=== PATIENT | male | born 1945 | race Caucasian/White ===

== ENCOUNTER 2023-01-15 12:29 | Emergency (ER) | payer MEDICARE, SELFPAY ==
[2023-01-15 12:40] VITALS: BP 137/64; PULSE 56; RESP 20; TEMP 37.4; O2SAT 98
--- NOTE | 2023-01-15 12:44 | ED.URI ---
HPI - URI/Sore Throat General Chief Complaint: Upper Respiratory Infection Stated Complaint: Cough/Congestion Time Seen by Provider: 01/15/23 12:44 Source: patient and RN notes reviewed History of Present Illness HPI Narrative: Patient is a 77-year-old male who presents to urgent care with complaints of chest congestion, cough and runny nose. Patient states it started Sunday after he mowed, we did and worked in the yard all day. Patient states he has been sitting outside in the cold air. States he took Tylenol yesterday for a 99 temperature. Denies any exposure to illness. Denies any shortness of breath or chest discomfort. No other acute complaints. No acute distress noted. Patient aware of the plan of care. Some parts of this dictation were generated by voice recognition software and may contain typographical and/or grammatical inaccuracies. Related Data Home Medications Medication Instructions Recorded Confirmed amlodipine 10 mg tablet mg 01/15/23 apixaban 5 mg tablet (Eliquis) mg 01/15/23 atorvastatin 10 mg tablet mg 01/15/23 losartan 50 mg tablet mg 01/15/23 Allergies Allergy/AdvReac Type Severity Reaction Status Date / Time ABA Inhibitors Allergy Mild Verified 05/01/10 02:53 Review of Systems Review of Systems: CONSTITUTIONAL: Denies fever, chills, or sweats. EYES: Denies visual changes, redness, or discharge. ENT: Reports rhinorrhea, congestion CARDIOVASCULAR: Denies chest pain, palpitations, or edema. RESPIRATORY: Reports a mild cough without dyspnea GASTROINTESTINAL: Denies abdominal pain, nausea, vomiting, or diarrhea. GENITOURINARY: Denies dysuria or hematuria. SKIN: Denies rash or itching. MUSCULOSKELETAL: Denies back pain, joint pain, or myalgia. NEUROLOGIC: Denies headache, numbness, or weakness. All other systems reviewed are negative, except as documented in HPI. PMFSH Comments At the time of my signature, I reviewed and agree with the nursing past medical, surgical, social, and family history. There is no relevant family history pertinent to the patient complaint. Exam Narrative: GENERAL: This is a well-nourished, well-developed patient, in no apparent distress. HEAD: normocephalic, atraumatic. EYES: PERRL. Sclera clear/white. Vision is grossly intact. EARS: External ears normal, auditory canals clear and without drainage, TMs normal without perforation. Hearing grossly intact. NOSE: External nose normal with no obvious nasal discharge, nares without redness, clear rhinorrhea. THROAT: Mucous membranes moist, posterior pharynx clear. Moderate postnasal drainage NECK: Neck supple RESPIRATORY: Clear to auscultation. Breath sounds equal bilaterally. No wheezes, rales, or rhonchi. SKIN: warm, intact with no suspicious lesions or rash, good texture and turgor. NEURO: awake, alert, and oriented to person, place and time. There were no obvious focal neurologic abnormalities. EXTREMITIES: No clubbing, cyanosis, or edema. Course Course Level of Care: Express Care Visit Vital Signs Vital signs: Vital Signs Temperature 99.4 F 01/15/23 12:40 Pulse Rate 56 L 01/15/23 12:40 Respiratory Rate 20 01/15/23 12:40 Blood Pressure 137/64 01/15/23 12:40 Pulse Oximetry 98 01/15/23 12:40 Oxygen Delivery Room Air 01/15/23 12:40 Temperature 99.4 F 01/15/23 12:40 Pulse Rate 56 L 01/15/23 12:40 Respiratory Rate 20 01/15/23 12:40 Blood Pressure 137/64 01/15/23 12:40 Pulse Oximetry 98 01/15/23 12:40 Oxygen Delivery Room Air 01/15/23 12:40 Reviewed MDM - URI/Sore Throat MDM Narrative Medical decision making narrative: Advised patient take a daily antihistamine such as Claritin or Zyrtec. Avoid medications with pseudoephedrine. Symptoms are consistent with allergic rhinitis/common cold. Use Flonase nasal spray for runny nose. Follow-up with your PCP within 2-5 days or for worsening symptoms or failure to improve. Differential Diagnosis Differential diagnosis:
== END 2023-01-15 13:05 | disposition home or self-care (01) ==
PROVIDERS: Emergency Provider Nurse Practitioner Family; PCP Internal Medicine
DX: J30.9 Allergic rhinitis, unspecified (principal); I10 Essential (primary) hypertension
CPT/HCPCS: 99203; G0463

== ENCOUNTER 2025-08-09 10:09 | Emergency (ER) | payer MEDICARE, SELFPAY ==
--- OUTSIDE RECORDS SUMMARY | 2025-01-07 02:47 | XMS_ITS | Continuity of Care Document ---
Author Organization [facility] Address [address] [place] [address] Phone Care Team Providers Care Sign Fabricator Name Role Phone Thee PT,MPT,ATC, Tyrell Unavailable Unavai lable Procedures Procedure Date Therapeutic Activities Therapeutic Activities Neuromuscular Re-Ed Therapeutic Activities Neuromuscular Re-Ed Doc neg elder mal no plan PT Evaluation Moderate Complexity Therapeutic Activities Neuromuscular Re-Ed Advance Directives Directive Yes / No Effective Date File Name No Information Encounters Encounter Description Practice Location Reason(s) For Visit Diagnoses Date Provider Providers Copied on Encounter [facility], [id number], tel:[phone] [place] No Information 5 Thee Santillan. , [place], [place]. [facility], [id number], tel:[phone] [place] No Information 4 [place]. . Referring Provider: Irvin Flores, [address] [place], [address]. tel:[phone] [facility] [address] [address], [place], [place], [id number], tel:[phone] [place] No Information 4 [place]. . Referring Provider: Irvin Flores, [address], [place], [address]. tel:[phone], [id number], tel:[phone] [place] No Information Dec-0 4 Dominic Izquierdo. . Referring Provider: Irvin Flores, [address], [place], [address]. tel:[phone], [place], [place], [id number], tel:[phone] [place] No Information Dec-0 2- 4 [facility] [place] . Referring Provider: Irvin Flores, [address] [address], [place], [address]. tel:[phone] Family History Family Member Type Diagnosis Age At Onset No Information Payers Payer name Insurance type Covered republican ID Pablito valentin(s) Medicare [place] MB [id number] [employer] Medicare Supplement CI [id number] Social History Type Description Quantity Date Captured Comments Sex Male Smoking Status No Information Chief Complaint And Reason For Visit No Information Reason For Referral Reason For Referral No Information History Of Present Illness Encounter Date Complaint History Of Prese nt Illness No Information Functional Status Date Functional Assessmen t No Information Instructions Date Instruction Additional Infor mation No Information Assessments Type Assessment Date No Information Patient Care Teams Name Effective Dates (start - stop) Status Members No Information
--- OUTSIDE RECORDS SUMMARY | 2025-01-07 02:47 | XMS_ITS | Continuity of Care Document ---
Author Organization [facility] Address [address] [place] [address] Phone Care Team Providers Care Hospital Educator Name Role Phone Thee PT,MPT,ATC, Tyrell Unavailable Unavai lable Procedures Procedure Date Therapeutic Activities Therapeutic Activities Neuromuscular Re-Ed Therapeutic Activities Neuromuscular Re-Ed Doc neg elder mal no plan PT Evaluation Moderate Complexity Therapeutic Activities Neuromuscular Re-Ed Advance Directives Directive Yes / No Effective Date File Name No Information Encounters Encounter Description Practice Location Reason(s) For Visit Diagnoses Date Provider Providers Copied on Encounter [facility], [id number], tel:[phone] [place] No Information 5 Thee Santillan. , [place], [place]. [facility], [id number], tel:[phone] [place] No Information 4 [place]. . Referring Provider: Irvin Flores, [address] [place], [address]. tel:[phone] [facility] [address] [address], [place], [place], [id number], tel:[phone] [place] No Information 4 [place]. . Referring Provider: Irvin Flores, [address] [address], [place], [address]. tel:[phone], [id number], tel:[phone] [place] No Information Dec-0 4 Dominic Izquierdo. . Referring Provider: Irvin Flores, [address], [place], [address]. tel:[phone], [place], [place], [id number], tel:[phone] [place] No Information Dec-0 2- 4 [facility] [place] . Referring Provider: Irvin Flores, [address], [place], [address]. tel:[phone] Family History Family Member Type Diagnosis Age At Onset No Information Payers Payer name Insurance type Covered democrat ID Pablito valentin(s) Medicare [place] [id number] [employer] Medicare Supplement CI [id number] Social History Type Description Quantity Date Captured [...]
--- NOTE | ~2025-08-09 | XR_ITS ---
Examination: XR chest 2V Clinical History: cough/ chest congestion Comparison: None Technique: PA and Lateral Findings: Heart size enlarged. Lungs clear. No acute bony abnormality. IMPRESSION: 1. No acute cardiopulmonary findings. Reviewed, dictated and finalized at location R. EGNATING HELPER
--- OUTSIDE RECORDS SUMMARY | 2025-08-09 10:12 | XMS_ITS | Encounter Summary ---
Author Organization [facility] Address [address] [place] [address] Phone Care Team Providers Care Housing Director Name Role Phone Ben Walker MD Primary Care Provider [phone] Pacheco Gilmore MD Unavailable [phone] Leif Mendoza MD Unavailable Paul Veras MD Unavailable Irvin Flores PAC Unavailable [phone] Kev Angeles MD Unavailable Kady Kendrick MD Unavailable [phone] Arcenio Roberson MD Unavailable Reason for Visit * Reason Comments Medication Refill Encounter Details Date Type Department Care Team (Late st Contact Info) Description 08/19/2021 Refill [facility] - Primary Care - [address] [place] [address] Ben Walker MD [address] [place] [address] Medication Refill Social History Tobacco Use Types Packs/Day Years Used Date Smoking Tobacco: Light Smoker Cigars Smokeless Tobacco: Never Comments:Pt smokes one cigar a month Alcohol Use Standard Drinks/Week Comments No 0 (1 standard drink = 0.6 oz pur e alcohol) PHQ-2 Answer Date Recorded Total Score - Questions 1-9 0 01/29 Sexually Active Control Partners Comments Never Sex and Gender Information Value Date Recorded Sex Assigned at Not on file Legal Sex Male 11:37 PM CDT Gender Identity Not on file Sexual Orientation Not on file documented as of this encounter Miscellaneous Notes * Telephone Encounter - Lyly Corbett RN - 08/19/2021 9:55 AM SKULL SPLITTER Medication approved and signed per standing order protocol. L SPLITTER documented in this encounter Plan of Treatment Not on file documented as of this encounter Visit Diagnoses Not on filedocumented in this encounter Additional Health Concerns Assessment Noted Time PHQ-9 Depression Total Score: 0 02/12/20 21 10:00 AM CDT documented as of this encounter Care Teams Housing Director Relationship Specialty Start Date End Date Ben Walker MD [address] [place] [address] PCP - General Internal Medicine 07/28/16 Pacheco Gilmore MD [address] [place] [address] Consulting Physician Cardiovascular Disease - Cardiology 11/14/16 04/12/25 [place] [address] [place] [address] Consulting Physician Pain Medicine-Pain Management 05/22/18 Paul Veras MD [address] [place] [address] Consulting Physician Orthopaedic Surgery 02/23/23 Irvin Flores PAC [address] [place] [address] Physician Shed Workers Supervisor Orthopaedic Surgery 08/18/24 Kev Angeles MD [address] [address] Consulting Physician Colon and Rectal Surgery 09/19/24 Kady Kendrick MD [address] [address] Consulting Physician Cardiology 04/13/25 Arcenio Roberson MD [address] [place] [address] Consulting Physician Wound Care 04/13/25 documented as of this encounter
--- OUTSIDE RECORDS SUMMARY | 2025-08-09 10:12 | XMS_ITS | Clinical Summary ---
Author Organization [facility] Address [address], [address] [address] Phone Care Team Providers Care Lcac Operator Name Role Phone Ben Walker MD Primary Care Provider [phone] Leif Mendoza MD Unavailable [phone] Paul Veras MD Unavailable Irvin Flores PAC Unavailable [phone] Kev Angeles MD Unavailable Kady Kendrick MD Unavailable [phone] Arcenio Roberson MD Unavailable Allergies Active Allergy Reactions Criticality Noted Date Comments Trung Inhibitors Other (see Comments) 08/24/2015 Makes him cough Medications losartan (COZAAR) 50 MG Tablet Take 50 mg by mouth daily. 90 Tab 8 Active amLODIPine (NORVASC) 10 MG Tablet Take 10 mg by mouth daily. 1 Active apixaban (ELIQUIS) 5 MG TabletIndicati ons:PER DR. MAIER ORDERS, HOLD FOR 3 DAYS PRIOR TO 10/13/24 SURGERY, PENDING CLEARANCE. Take 5 mg by mouth 2 times daily. Indications: PER DR. MAIER ORDERS, HOLD FOR 3 DAYS PRIOR TO 10/13/24 SURGERY, PENDING CLEARANCE. 1 Active acetaminophen (TYLENOL) 325 MG Tablet Take 1 Tablet by mouth every 6 hours as needed for Mild or more severe pain. Do not exceed 4000 mg of acetaminophen in 24 hour from all sources. 5 Active traMADol (ULTRAM) 50 MG TabletIndicati ons:Skin cancer, basal cell Take 1 Tablet by mouth every 6 hours as needed for Moderate or more severe pain. 12 Tablet 5 Active ibuprofen (MOTRIN) 200 MG Tablet Take 2 Tablets by mouth every 6 hours as needed for Mild or more severe pain. 5 Active naproxen (NAPROSYN) 500 MG Tablet TAKE 1 TABLET BY MOUTH TWICE DAILY WITH MEALS 60 Tablet 5 Active atorvastatin (LIPITOR) 10 MG Tablet TAKE 1 TABLET BY MOUTH DAILY 30 Tablet 5 Active Active Problems Problem Noted Date Diagnosed Date Skin cancer, basal cell 10/13/2024 Nonrheumatic mitral valve regurgitation 10/12/19 23 Overview (02/23/2023): Last Assessment & Plan: Moderate on ECHO in the past, follow up in 6 moths, ECHO same day. Irritant contact dermatitis due to detergent PLMD (periodic limb movement disorder) 0 Overview (02/11/2020): Mild. 2019. LV (obstructive sleep apnea) 12/26/[address] on CT 10/30/2018 Cardiomyopathy, ischemic 03/18/2018 Nonrheumatic aortic valve insufficiency 03/18/20 18 Coronary artery disease invo lving [place] coronary artery of [place] heart without angina pectoris 03/18/2018 Overview (02/23/2023): Last Assessment & Plan: Stable CAD with CABG x 3 in 2012 with ICM and recovery of EF to 47%. Continue Losartan, no BB given bradycardia. No TRUNG given allergy. FLP in January 2022 stable with and LDL at goal 52, lipitor 10 mg daily, Norvasc 10 mg daily, lasix 40 mg daily . Repeat ECHO in follow up with Dr. Gilmore in 6 months, to ensure recovery of EF and to monitor and MR. Chronic low back pain 10/01/2016 Overview (05/22/2018): Mild Hypertension, essential 08/21/2015 Mixed hyperlipidemia 08/21/2015 ASHD (arteriosclerotic heart disease) 08/21/2015 PVC (premature ventricular contraction) Diverticulosis Paroxysmal atrial fibrillation Resolved Problems Problem Noted Date Diagnosed Date Resolved Date Femur fracture, left 08/29/2021 024 History of atrial fibrillation 11/20/2017 11/20/2017 TRUNG inhibitor intolerance 08/21/2015 Paroxysmal atrial fibrillation 08/21/2015 11/14/2016 Hypertension 02/17/2022 Sleep apnea 04/09/2024 Encounters Date Type Department Care Team Description 07/28/2025 [facility] [address] [place] [address] Ben Walker MD Medication Refill 06/25/2025 [facility] [address] [place] [address] Ben Walker MD Medication Refill 06/25/2025 [facility] [address] [address] Destin Neal, [facility] Medication Refill from Last 3 Months Immunizations Immunization Administration Dates Next Due Covid-19, Mrna, Lnp-s, PF, 1 00 mcg/0.5 mL Dose (Moderna) 12/14/2020,11/10/2020 Influenza Vaccine greater than 3 yrs 09/05/2021 Influenza, Injectable, Quadrivalent 08/16/2023 Influenza, Quadrivalent, Adjuvanted 07/18/2022 Influenza, Seasonal, Injecta ble, Undefined 09/05/2021,08/19/2014 Influenza, high-dose, trivalent, PF 08/31,08/16/2020,07/25/2019,2017 PNEUMONIA ADULT IM [id number] 11/14/2016 Pneumococcal Vaccine - 13 Valent 08/19/2014 TDAP Vaccine 07/11/2021,05/10/2015 Tetanus Toxoid, Unspecified Formulation 10/01/1998 Family History Medical History Relation Name Comments No Known Problems Daughter Heart Disease Father Hypertension Father No Known Problems Maternal Grandfather No Known Problems Maternal Grandmother Alzheimer's Disease Mother No Known Problems Paternal Grandfather No Known Problems Paternal Grandmother High Cholesterol Son Hypertension Son Relation Name Status Comments Daughter Alive Father Maternal Grandfather Maternal Grandmother Mother Paternal Grandfather Paternal Grandmother Son Alive Social History Tobacco Use Types Packs/Day Years Used Date Smoking Tobacco: Light Smoker Cigars Smokeless Tobacco: Never Tobacco Cessation:Ready to Q uit: Not Asked; Counseling Given: Not Answered Comments:Pt smokes one cigar a month OR LESS Alcohol Use Standard Drinks/Week Comments Yes 0 (1 standard drink = 0.6 oz pur e alcohol) RARE PHQ-2 Answer Date Recorded Total Score - Questions 1-9 0 03/31 Sexually Active Control Partners Comments Yes Female Sex and Gender Information Value Date Recorded Sex Assigned at Not on file Legal Sex Male 11:37 PM CDT Gender Identity Not on file Sexual Orientation Not on file Last Filed Vital Signs Vital Sign Reading Time Taken Comments Blood Pressure 140/78 01/06/2025 9:13 AM CDT Pulse 58 01/06/2025 9:13 AM CDT Temperature 36.7 C (98.1 F) 01/06/2025 9:13 AM CDT Respiratory Rate 16 10/28/2024 10:18 AM TRAVELING SALES REPRESENTATIVE Oxygen Saturation 98% 01/06/2025 9:13 AM CDT Inhaled Oxygen Concentration - - Weight 76.2 kg (168 lb) 01/06/2025 9:13 AM CDT Height 175.3 cm (5' 9) 01/06/2025 9:13 AM CDT Body Mass Index 24.81 01/06/2025 9:13 AM CDT Plan of Treatment Health Maintenance Due Date Last Done Comments Zoster Immunization (1 of 2) 1994 Medicare Initial AWV G0438 10/01/2010 Respiratory Syncytial Virus (RSV) Immunization (Adult) (1 - 1-dose 75+ series) 2019 Influenza Immunization (#1) 2025 12/10/2023, 08/16/2023, 07/18/2022, Additional history exists SARS-COV-2 Immunization ( season) 2025 09/10/2024, 08/16/2023, 08/14/2022, Additional history exists Td Immunization Every 10 Years (Adults With 1 Tdap) 07/11/2031 07/11/2021, 05/10/2015 Colonoscopy Discontinued 06/28/2012 Colorectal Cancer Screening Discontinued Pneumococcal Immunization (50+ years) Completed 11/14/2016, 08/19/2014 Pneumococcal Immunization Combined Discontinued 11/14/2016, 08/19/2014 Hepatitis C Virus (HCV) Screening Completed 03/02/2021 Cologuard Discontinued Hepatitis B Immunization Aged Out No longer eligible based on patient's age to complete this topic Human Papillomavirus (HPV) Immunization Aged Out No longer eligible based on patient's age to complete this topic Immunochemical Fecal Occult Blood Discontinued Meningococcal Immunization (ACWY) Aged Out No longer eligible based on patient's age to complete this topic Rotavirus Immunization Aged Out No lo nger eligible based on patient's age to complete this topic Medical Devices Implanted Type Area Party Bus Driver Device Identifier Shelf Expiration Date Model / Serial / Lot Stem Fem 105mm Mddez Accolade Ii 127d 4 Taper 35mm Hip Strl - [id number] Implanted:Qty: 1 on 08/30/2021 by Paul Veras MD at [facility] IMPLANT Left: Hip [employer] 06/14/2026 [id number] / [id number] / [id number] [employer] Unit[employer] Endoprosthesis Head Component Implanted:Qty: 1 on 08/30/2021 by Paul Veras MD at [facility] Left: Hip [employer] 04/28/2025 6942-5-05 0 / [id number] / [id number] [employer] Neck Adjustment Sleeve Implanted:Qty: 1 on 08/30/2021 by Paul Veras MD at [facility] Left: Hip [employer] / [employer] 06/21/2026 6942-6-06 [id number] / [id number] Procedures Procedure Name Priority Date/Time Associated Diagnosis Comments XR - LOWER EXTREMITY 06/04/2025 12:00 AM CDT HEPATITIS C ANTIBODY Routine 03/02/2021 11:52 AM CDT Hyperbilirubinemia Abnormal alkaline phosphatase test Need for hepatitis C screening test COLONOSCOPY Routine 06/28/2012 from Last 3 Months or Most Recently Relevant to Health Maintenance Results * XR - LOWER EXTREMITY (06/04/2025 12:00 AM CDT) 06/04/2025 us Provider Scan IMG DIAGNOSTIC ORDERABLES Final Result SCAN * HEPATITIS C ANTIBODY (03/02/2021 11:52 AM CDT) hepatitis C antibody 0.20 <1 S/CO [facility] ARCH [id number] 03/02/2021 9:54 PM CDT [facility] Comment: Signal/Cutoff ratio < 0.79 is Nondetected Signal/Cutoff ratio 0.80-0.99 is Grayzone Signal/Cutoff ratio > 0.99 is Detected Supplemental assays are recommended if signal/cutoff ratio is >/=1.00. Signal/cutoff ratio result >/= 5.00 is 97% predictive of positivity for recombinant immunoblot assay (RIBA) and will be reported to the [place] Department of Public Health as required. Blood Venipuncture / Unknown 03/02/2021 11:52 AM CDT 03/02/2021 11:52 AM CDT us Ben Walker MD CHEMISTRY ORDERABLES Kalli l Result [facility] [address] [place] [address], * COLONOSCOPY (06/28/2012) Kimo Garrett Jr., MD PROCEDURE/MINOR REYMUNDO GICAL ORDERABLES Final Result from Last 3 Months or Most Recently Relevant to Health Maintenance Insurance MEDICARE [employer] GENERIC Advance Directives * Full Code (Latest Code Status on File) Date Activated Date Inactivated Comments 09/08/2021 12:01 PM 05/15/2022 7:06 PM * Full Code Date Activated Date Inactivated Comments 08/29/2021 1:40 AM 09/02/2021 3:30 AM CPR-Full Tr eatment: FULL ARREST: Attempt Resuscitation/CPR wit intubation and mechanical ventilation. PRE-ARREST: Use entire range of life support measures to stabilize the patient. Care Teams Lcac Operator Relationship Specialty Start Date End Date Ben Walker MD [address] [place] [address] PCP - General Internal Medicine 07/28/16 [place] [address] [place] [address] Consulting Physician Pain Medicine-Pain Management 05/22/18 Paul Veras MD [address] [place] [address] Consulting Physician Orthopaedic Surgery 02/23/23 Irvin Flores PAC [address] [place] [address] Physician Custom Feed Mill Operator Helper Orthopaedic Surgery 08/18/24 Kev Angeles MD [address] [address] Consulting Physician Colon and Rectal Surgery 09/19/24 Kady Kendrick MD [address] [address] Consulting Physician Cardiology 04/13/25 Arcenio Roberson MD [address] [place] [address] Consulting Physician Wound Care 04/13/25
--- OUTSIDE RECORDS SUMMARY | 2025-08-09 10:12 | XMS_ITS | Encounter Summary ---
Author Organization [facility] Address [address] [place] [address] Phone Care Team Providers Care Wireless Team Member Name Role Phone Ben Walker MD Primary Care Provider [phone] Pacheco Gilmore MD Unavailable Leif Mendoza MD Unavailable [phone] Paul Veras MD Unavailable Irvin Flores PAC Unavailable Kev Angeles MD Unavailable Kady Kendrick MD Unavailable [phone] Arcenio Roberson MD Unavailable Reason for Visit * Reason Comments Medication Refill Encounter Details Date Type Department Care Team (Late st Contact Info) Description 08/06/2021 Refill [facility] - Primary Care - Sarah [address] [place] [address] Ben Walker MD [address] [place] [address] Medication Refill Social History Tobacco [...] on file Sexual Orientation Not on file COVID-19 Exposure Response Date Recorded In the last month, have you been in contact with someone who was confirmed or suspected to have Coronavirus / COVID-19? No / Unsure 07/11/2021 12:42 PM CDT documented as of this encounter Plan of Treatment Not on file documented as of this encounter Visit Diagnoses Not on filedocumented in this encounter Additional Health Concerns Assessment Noted Time PHQ-9 Depression Total Score: 0 02/12/20 21 10:00 AM CDT documented as of this encounter Care Teams Wireless Team Member Relationship Specialty Start Date End Date Ben Walker MD [address] [place] [address] PCP - General Internal Medicine 07/28/16 Pacheco Gilmore MD [address] [place] [address] Consulting Physician Cardiovascular Disease - Cardiology 11/14/16 04/12/25 [place] [address] [place] [address] Consulting Physician Pain Medicine-Pain Management 05/22/18 Paul Veras MD [address] [place] [address] Consulting Physician Orthopaedic Surgery 02/23/23 Irvin Flores PAC [address] [place] [address] Physician Checkout Operator Orthopaedic Surgery 08/18/24 Kev Angeles MD [address] [address] Consulting Physician Colon and Rectal Surgery 09/19/24 Kady Kendrick MD [address] [address] Consulting Physician Cardiology 04/13/25 Arcenio Roberson MD [address] [place] [address] Consulting Physician Wound Care 04/13/25 documented as of this encounter
--- OUTSIDE RECORDS SUMMARY | 2025-08-09 10:12 | XMS_ITS | Encounter Summary ---
Author Organization [facility] Address [address] [place] [address] Phone Care Team Providers Care Special Event Assistant Name Role Phone Ben Walker MD Primary Care Provider [phone] Leif Mendoza MD Unavailable [phone] Paul Veras MD Unavailable Irvin Flores PAC Unavailable [phone] Kev Angeles MD Unavailable Kady Kendrick MD Unavailable [phone] Arcenio Roberson MD Unavailable Reason for Visit * Reason Comments Medication Refill Encounter Details Date Type Department Care Team (Late st Contact Info) Description 06/25/2025 Refill [facility] - Primary Care - Sarah [address] [place] [address] Destin Neal, PAC [address] [place] [address] Medication Refill Social History Tobacco Use Types Packs/Day Years Used Date Smoking Tobacco: Light Smoker Cigars Smokeless Tobacco: Never Comments:Pt smokes one cigar a month OR [...] encounter Miscellaneous Notes * Telephone Encounter - Jorge Hernandez CMA - 06/25/2025 1:56 PM CDT LM to call back * Telephone Encounter - Lyly Corbett RN - 06/25/2025 1:31 PM CDT Routing to [employer] to contact patient. * Telephone Encounter - Ben Walker MD - 06/25/2025 1:12 PM CDT Refill request approved. The patient was a no-show for his last scheduled fasting office visit over2 months ago. * Telephone Encounter - Lyly Corbett RN - 06/25/2025 12:23 PM CDT Medication failed the protocol, provider to review and approve the medication order if appropriate. Requested Prescriptions Pending Prescriptions Disp Refills atorvastatin (LIPITOR) 10 MG Tablet [Pharmacy Med Name: ATORVASTATIN 10MG TABLETS] 90 Tablet 3 Sig: TAKE 1 TABLET BY MOUTH DAILY Hmg CoA Reductase Inhibitors Protocol Failed - 06/25/2025 12:23 PM Failed - Lipid panel in past 12 months LDL Date Value Ref Range Status 04/10/2024 66 <130 mg/dL Final HDL CHOLESTEROL Date Value Ref Range Status 04/10/2024 36 (L) >40 mg/dL Final CHOLESTEROL Date Value Ref Range Status 04/10/2024 119 <200 mg/dL Final TRIGLYCERIDES Date Value Ref Range Status 04/10/2024 85 <150 mg/dL Final VLDL Date Value Ref Range Status 04/10/2024 17 10 - 50 mg/dL Final CHOL/HDL RATIO Date Value Ref Range Status 04/10/2024 3.3 0.0 - 4.4 Final NON-HDL CHOLESTEROL Date Value Ref Range Status 04/10/2024 83 <130 mg/dL Final Failed - CMP in past 12 months SODIUM Date Value Ref Range Status 04/10/2024 142 136 - 145 mmol/L Final POTASSIUM Date Value Ref Range Status 04/10/2024 4.6 3.5 - 5.1 mmol/L Final CHLORIDE Date Value Ref Range Status 04/10/2024 110 (H) 98 - 107 mmol/L Final CO2, VENOUS Date Value Ref Range Status 04/10/2024 22 22 - 30 mmol/L Final ANION GAP Date Value Ref Range Status 04/10/2024 14.6 <18.0 mmol/L Final GLUCOSE Date Value Ref Range Status 04/10/2024 90 70 - 99 mg/dL Final BUN Date Value Ref Range Status 04/10/2024 18 8 - 26 mg/dL Final CREATININE, BLOOD Date Value Ref Range Status 04/10/2024 1.21 0.70 - 1.30 mg/dL Final BUN/CREATININE RATIO Date Value Ref Range Status 04/10/2024 15 12 - 20 ratio Final TOTAL PROTEIN Date Value Ref Range Status 04/10/2024 6.1 (L) 6.3 - 8.2 g/dL Final ALBUMIN Date Value Ref Range Status 04/10/2024 3.7 3.5 - 5.0 g/dL Final A/G RATIO Date Value Ref Range Status 04/10/2024 1.5 1.0 - 2.2 Final CALCIUM Date Value Ref Range Status 04/10/2024 8.7 8.7 - 10.5 mg/dL Final T BILI Date Value Ref Range Status 04/10/2024 2.3 (H) 0.2 - 1.2 mg/dL Final SGOT (AST) Date Value Ref Range Status 04/10/2024 13 5 - 34 U/L Final SGPT (ALT) Date Value Ref Range Status 04/10/2024 12 0 - 55 U/L Final ALKALINE PHOSPHATASE Date Value Ref Range Status 04/10/2024 107 40 - 150 U/L Final GFR, EST. NONAFRICAN Date Value Ref Range Status 04/10/2024 58 (L) >=60 Final GFR, EST. Date Value Ref Range Status 04/10/2024 >60 >=60 Final GFR, ESTIMATED Date Value Ref Range Status 04/10/2024 >60 >=60 Final Comment: Creatinine Clearance is the preferred criteria for selecting drug dose adjustments in renally impaired patients. ??The GFR is provided as additional pertinent clinical information. GFR is reported in mL/min/1.73 sq m. Calculation based on the Chronic Kidney Disease Epidemiology Collaboration (CKD- EPI) equation refitwithout adjustment for race. IS THE PATIENT REQUIRED TO BE FASTING? Date Value Ref Range Status 04/10/2024 No Final Passed - Visit with relevant provider in past 12 months or upcoming 90 days Recent Visits Date Type Provider Dept 08/08/24 Office Visit Yuridia Pappas APRN, FA[facility] 07/08/24 Office Visit Yuridia Pappas APRN, MICHEL[facility] Showing recent visits within past 365 days and meeting all other requirements Future Appointments No visits were found meeting these conditions. Showing future appointments within next 90 days and meeting all other requirements documented in this encounter Plan of Treatment Not on file documented as of this encounter Visit Diagnoses Not on filedocumented in this encounter Additional Health Concerns Assessment Noted Time PHQ-9 Depression Total Score: 0 04/09/20 24 2:19 PM CDT documented as of this encounter Care Teams Special Event Assistant Relationship Specialty Start Date End Date Ben Walker MD [address] [place] [address] PCP - General Internal Medicine 07/28/16 [place] [address] [place] [address] Consulting Physician Pain Medicine-Pain Management 05/22/18 Paul Veras MD [address] [place] [address] Consulting Physician Orthopaedic Surgery 02/23/23 Irvin Flores PAC [address] [facility] 1 [place] [address] Physician Passenger Conductor Orthopaedic Surgery 08/18/24 Kev Angeles MD #2 [facility] [address] [place] [address] Consulting Physician Colon and Rectal Surgery 09/19/24 Kady Kendrick MD [address] [facility] [address] [place] [address] Consulting Physician Cardiology 04/13/25 Arcenio Roberson MD [address] [place] [address] Consulting Physician Wound Care 04/13/25 documented as of this encounter
--- OUTSIDE RECORDS SUMMARY | 2025-08-09 10:12 | XMS_ITS | Encounter Summary ---
Author Organization [facility] Address [address] [place] [address] Phone Care Team Providers Care Key Filer Name Role Phone Ben Walker MD Primary Care Provider [phone] Leif Mendoza MD Unavailable [phone] Paul Veras MD Unavailable Irvin Flores [facility] Unavailable [phone] Kev Angeles MD Unavailable Kady Kendrick MD Unavailable [phone] Arcenio Roberson MD Unavailable Reason for Visit * Reason Comments Medication Refill Encounter Details Date Type Department Care Team (Late st Contact Info) Description 07/28/2025 Refill [facility] - Primary Care - Sarah [address] [place] [address] Ben Walker MD [address] [place] [address] Medication Refill Social History Tobacco [...] encounter Miscellaneous Notes * Telephone Encounter - Ben Walker MD - 07/28/2025 10:53 AM CDT Patient has not responded to requests to reschedule his no-show appointments. * Telephone Encounter - Lyly Corbett RN - 07/28/2025 10:02 AM CDT Medication failed the protocol, provider to review and approve the medication order if appropriate. Requested Prescriptions Pending Prescriptions Disp Refills atorvastatin (LIPITOR) 10 MG Tablet [Pharmacy Med Name: ATORVASTATIN 10MG TABLETS] 30 Tablet 0 Sig: TAKE 1 TABLET BY MOUTH DAILY Hmg CoA Reductase Inhibitors Protocol Failed - 07/28/2025 10:02 AM Failed - Lipid panel in past 12 [...] Type Provider Dept 08/08/24 Office Visit Yuridia Pappas, PLANT PHYSIOLOGY TEACHER, CAR SALES REPRESENTATIVE [facility] Showing recent visits within past 365 days [...] documented as of this encounter Care Teams Key Filer Relationship Specialty Start Date End Date Ben Walker MD [address] [place] [address] PCP - General Internal Medicine 07/28/16 [place] [address] [place] [address] Consulting Physician Pain Medicine-Pain Management 05/22/18 Paul Veras MD [address] [place] [address] Consulting Physician Orthopaedic Surgery 02/23/23 Irvin Flores PAC [address] [place] [address] Physician Shirt Finisher Orthopaedic Surgery 08/18/24 Kev Angeles MD #2 [facility] [address] [place] [address] Consulting Physician Colon and Rectal Surgery 09/19/24 Kady Kendrick MD [address] [facility] [address] [place] [address] Consulting Physician Cardiology 04/13/25 Arcenio Roberson MD [address] [place] [address] Consulting Physician Wound Care 04/13/25 documented as of this encounter
--- OUTSIDE RECORDS SUMMARY | 2025-08-09 10:12 | XMS_ITS | Encounter Summary ---
Author Organization [facility] Address [address] [place] [address] Phone Care Team Providers Care Lending Manager Name Role Phone Ben Walker MD Primary Care Provider + Pacheco Gilmore MD Unavailable Kady Kendrick MD Unavailable [phone] Pacheco Gilmore MD Unavailable [phone] Encounter Details Date Type Department Care Team (Latest Contact Info) Description 11/12/2018 Orders Only [facility] Scanning, Provider Social History Tobacco Use Types Packs/Day Years Used Date Smoking Tobacco: Never Smokeless Tobacco: Never Sex and Gender Information Value Date Recorded Sex Assigned at Not on file Legal Sex Male 1:04 AM LUNCH COOK Gender Identity Male 03/17/2021 10:28 AM CDT Sexual Orientation Not on file documented as of this encounter Functional Status * BP Location Answer Date of Assessment Author Right arm 11/12/2018 10:11 AM LUNCH COOK Latonya Osborne RMA * BP Location Answer Date of Assessment Author Right arm 11/12/2018 10:11 AM LUNCH COOK Latonya Osborne RMA documented as of this encounter Plan of Treatment Not on file documented as of this encounter Procedures Procedure Name Priority Date/Time Associated Diagnosis Comments CARDIOLOGY DOCUMENT SCAN 11/12/2018 documented in this encounter Results * SCAN - CARDIOLOGY (11/12/2018) Anatomical Region Laterality Modality Other us Provider Scanning CV CARDIAC SERVICES PROCEDURES Final Result documented in this encounter Visit Diagnoses Not on filedocumented in this encounter Care Teams Lending Manager Relationship Specialty Start Date End Date Ben Walker MD PCP - General 02/28/18 Pacheco Gilmore MD Referring Physician Cardiology 12/09/18 Kady Kendrick MD Referring Physician Cardiology 12/09/18 Pacheco Gilmore MD Referring Physician Cardiology 12/26/18 12/26/18 documented as of this encounter
--- OUTSIDE RECORDS SUMMARY | 2025-08-09 10:12 | XMS_ITS | Encounter Summary ---
Author Organization [facility] Address [address] [place] [address] Phone Care Team Providers Care Director Of Marketing [employer] Ads Name Role Phone Ben Walker MD Primary Care Provider [phone] Pacheco Gilmore MD Unavailable [phone] Leif Mendoza MD Unavailable [phone] Paul Veras MD Unavailable Irvin Flores PAC Unavailable Kev Angeles MD Unavailable Kady Kendrick MD Unavailable [phone] Arcenio Roberson MD Unavailable Reason for Visit * Reason Comments Medication Refill Encounter Details Date Type Department Care Team (Late st Contact Info) Description 05/08/2021 Refill [facility] - Primary Care - Sarah [address] [place] [address] Bne Walker MD [address] [place] [address] Medication Refill Social History Tobacco [...] on file documented as of this encounter Plan of Treatment Not on file documented as of this encounter Visit Diagnoses Not on filedocumented in this encounter Additional Health Concerns Assessment Noted Time PHQ-9 Depression Total Score: 0 02/12/20 21 10:00 AM CDT documented as of this encounter Care Teams Director Of Marketing [employer] Performance Ads Relationship Specialty Start Date End Date Ben Walker MD [address] [place] [address] PCP - General Internal Medicine 07/28/16 Pacheco Gilmore MD [address] [place] [address] Consulting Physician Cardiovascular Disease - Cardiology 11/14/16 04/12/25 [place] [address] [facility] [address] [place] [address] Consulting Physician Pain Medicine-Pain Management 05/22/18 Paul Veras MD [address] [place] [address] Consulting Physician Orthopaedic Surgery 02/23/23 Irvin Flores PAC [address] [place] [address] Physician Cone Classifier Tender Orthopaedic Surgery 08/18/24 Kev Angeles MD #2 [facility] [address] [place] [address] Consulting Physician Colon and Rectal Surgery 09/19/24 Kady Kendrick MD [address] [address] Consulting Physician Cardiology 04/13/25 Arecnio Roberson MD #1 [place] [address] Consulting Physician Wound Care 04/13/25 documented as of this encounter
--- NOTE | 2025-08-09 10:13 | ED.URI ---
HPI - URI/Sore Throat General Chief Complaint: Upper Respiratory Infection Stated Complaint: Nasal Congestion/Cough/Runny Nose Time Seen by Provider: 08/09/25 10:12 Source: patient Mode of arrival: ambulatory Limitations: no limitations History of Present Illness HPI Narrative: Brian is a 79 year old male patient presenting to the clinic today with c/o nasal congestion, cough, runny nose, chest congestion x 2 days. Stated the phlegm is thick but clear. Denies any fever, chills, or body aches. Denies any sob or chest pain. came him a decongestant pill. Related Data Home Medications ?Medication ?Instructions ?Recorded ?Confirmed ?Last Taken ?Type amlodipine 10 mg tablet mg 01/15/23 Unknown History apixaban 5 mg tablet (Eliquis) mg 01/15/23 Unknown History atorvastatin 10 mg tablet mg 01/15/23 Unknown History losartan 50 mg tablet mg 01/15/23 Unknown History spironolactone 25 mg tablet mg 08/09/25 Unknown History Allergies Allergy/AdvReac Type Severity Reaction Status Date / Time ABA Inhibitors Allergy Mild Unknown Verified 08/09/25 10:16 Review of Systems Review of Systems: Pertinent positives per HPI. Patient denies any fever, chills, rash, headache, visual changes, dizziness, chest pain, palpitations, nausea, vomiting, diarrhea, constipation, abdominal pain, or any urinary issues. PMFSH Comments At the time of my signature, I reviewed and agree with the nursing past medical, surgical, social, and family history. There is no relevant family history pertinent to the patient complaint. Exam Narrative: General: Well-developed, well nourished, in no apparent distress Head: Normocephalic, atraumatic Eyes: Pupils equally round and reactive to light bilaterally, EOM intact, sclera and conjunctive clear, no discharge, lids normal Ears: TMs intact and clear, ear canals clear, no drainage, grossly hearing normal. Nose: Nares patent, clear nasal discharge, mild inflammation, no sinus tenderness. Mouth: Oral pharynx without lesions or masses, good dentition, MMM. Neck: Supple, trachea midline, no enlargement of anterior or posterior cervical nodes, no thyroid masses or goiter palpable. Cardio: Regular rate and rhythm, s1 and s2 normal, no murmur appreciated. Resp: Inspiratory crackles and expiratory wheezing throughout lung [place], no rhonchi, or rubs Course Course Emergency Course: Portions of this record may have been created with voice recognition software. Level of Care: Express Care Visit Vital Signs Vital signs: Vital Signs Temperature 36.8 C 08/09/25 10:21 Pulse Rate 72 08/09/25 10:21 Respiratory Rate 20 08/09/25 10:21 Blood Pressure 148/59 H 08/09/25 10:21 Pulse Oximetry 98 08/09/25 10:21 Oxygen Delivery Room Air 08/09/25 10:21 Temperature 36.8 C 08/09/25 10:21 Pulse Rate 72 08/09/25 10:21 Respiratory Rate 20 08/09/25 10:21 Blood Pressure 148/59 H 08/09/25 10:21 Pulse Oximetry 98 08/09/25 10:21 Oxygen Delivery Room Air 08/09/25 10:21 Vital signs reviewed MDM - URI/Sore Throat MDM Narrative Medical decision making narrative: At the time of visit patient is resting comfortably on the exam table. Patient appears to be nontoxic. C/o nasal congestion, cough, runny nose, chest congestion x 2 days. Stated the phlegm is thick but clear. Denies any fever, chills, or body aches. Denies any sob or chest pain. came him a decongestant pill. On exam patient has TMs intact and clear, clear nasal drainage, mild anterior inflammation, oral pharynx normal, heart rate irregular rate and rhythm due to AFib, lung sounds with expiratory wheezing and inspiratory crackles. Orders for chest x-ray and COVID/flu testing. Labs: Covid and influenza testing was performed and negative in the clinic today. Diagnostics: Chest x-ray was performed and negative for any acute cardiopulmonary process. Plan: I suspect patient has bronchitis. Prescription for prednisone, azithromycin, Tessalon Perles, and albuterol inhaler. Supportive measures were discussed with the patient and they voiced understanding discharge instructions and agrees to treatment plan. Return precautions reviewed Differential Diagnosis Differential diagnosis: Likely upper respiratory infection, otitis media, sinusitis, viral infection, bronchitis, influenza, pharyngitis and other ( COVID) Discharge Plan Discharge Clinical Impression: Bronchitis Patient Disposition: Home Condition: Stable Instructions: Antibiotic Form, Acute Bronchitis (ED) Additional Instructions: Take prescription medications only as prescribed- azithromycin, prednisone, and albuterol inhaler Increase fluids and stay well hydrated May take Tylenol or motrin as directed on bottle for pain/fever May use Flonase 1 spray in each nare daily May take OTC antihistamines such as Zyrtec or Claritin daily as directed on bottle May apply Vicks vapor rub to chest to open sinuses Sinus rinses for congestion Cepacol spray, cough drops, throat lozenges, warm tea with honey/lemon, gargle salt water to soothe throat BRAT diet for diarrhea Clear liquids x 24 hours then advance as tolerated for nausea/vomiting Go to the ED if you develop a worsening in your condition- high fever not controlled by Tylenol or Motrin, dehydration, weakness, lethargy, shortness of breath, or chest pain. Follow up with your PCP in 3-5 days if symptoms persist. Patient Language: Mongolian Prescriptions: New azithromycin 250 mg tablet See Rx Instructions .ROUTE .COMPLEX Qty: 6 0RF Rx Instructions: For 250 mg dose pack: take 500 mg today (day 1), then 250 mg for 4 days (days 2-5) benzonatate 200 mg capsule 200 mg PO TID 7 Days Qty: 21 0RF prednisone 20 mg tablet 40 mg PO DAILY 5 Days Qty: 10 0RF albuterol sulfate 90 mcg/actuation HFA aerosol inhaler 2 puff inhalation Q4-6H PRN (Reason: shortness of breath or wheezing) 30 Days Qty: 8.5 0RF No Action spironolactone 25 mg tablet losartan 50 mg tablet atorvastatin 10 mg tablet amlodipine 10 mg tablet Eliquis 5 mg tablet fluticasone propionate [Flonase Allergy Relief] 50 mcg/actuation spray,suspension 2 spray NASAL DAILY Qty: 15.8 0RF Rx Instructions: administer into each nostril Follow-up/Referrals: Denise,Ben Berry MD [Primary Care Provider, Unknown] Time of Disposition: 11:27 Quality NIHSS Nursing Documentation ED NIHSS nursing documentation: reviewed/agree
--- OUTSIDE RECORDS SUMMARY | 2025-08-09 10:13 | XMS_ITS | Clinical Summary ---
Author Organization [facility] Address [address] [place] [address] Care Team Providers Care Resistor Inspector Name Role Phone Unavailable Primary Care Provider Unavailabl e Source Comments [facility],non-owned Affiliates and Associated Physician Practices is amultiple site organization consisting of ambulatory clinics and hospital sitesin [place], [place], [place] and [place]. This disclosure is being madepursuant to the Care Everywhere program and may not contain all information available regarding this patient. Last updated 18.[facility] Allergies Active Allergy Reactions Criticality Noted Date Comments Trung Inhibitors Cough Low 08/24/2015 Makes him cough Medications * Be aware that medications may not be up to date on this document. Alwaysverify current medications with the patient. amLODIPine (NORVASC) 5 MG tablet TAKE 1 TABLET BY MOUTH EVERY DAY 01/30/2018 Active aspirin (ASPIRIN) 81 MG tablet Take 81 mg by mouth Active atorvastatin (LIPITOR) 10 MG tablet TAKE 1 TABLET BY MOUTH EVERY DAY evening 12/07/2017 Active metoprolol succinate XL 24hr (TOPROL XL) 25 MG tablet Take 12.5 mg by mouth 11/23/2017 Active valsartan (DIOVAN) 80 MG tablet TAKE 1 TABLET(80 MG) BY MOUTH DAILY 03/18/2018 Active Active Problems No known active problems Family History Medical History Relation Name Comments CAD (Coronary Artery Disease) Father Alzheimer's Disease Mother Relation Name Status Comments Father Mother Social History Tobacco Use Types Packs/Day Years Used Date Smoking Tobacco: Never Smokeless Tobacco: Never Alcohol Use Standard Drinks/Week Comments No 0 (1 standard drink = 0.6 oz pur e alcohol) Sex and Gender Information Value Date Recorded Sex Assigned at Not on file Legal Sex Male 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 INVESTMENT MANAGER Gender Identity Not on file Sexual Orientation Not on file Last Filed Vital Signs Vital Sign Reading Time Taken Comments Blood Pressure 146/83 05/01/2018 1:19 PM CDT Pulse 55 05/01/2018 1:19 PM CDT Temperature - - Respiratory Rate 16 05/01/2018 1:19 PM CDT Oxygen Saturation 97% 05/01/2018 1:19 PM CDT Inhaled Oxygen Concentration - - Weight 77.1 kg (170 lb) 04/11/2018 2:16 PM CDT Height 177.8 cm (5' 10) 04/11/2018 2:16 PM CDT Body Mass Index 24.39 04/11/2018 2:16 PM CDT Plan of Treatment Health Maintenance Due Date Last Done Comments MEDICARE AWV 12 MONTHS 1944 DTAP/TDAP/TD VACCINES (1 - Tdap) 1963 PNEUMOCOCCAL VACCINE 50+ (1 of 1 - PCV) 1994 ZOSTER VACCINE (1 of 2) 1994 Respiratory Syncytial Virus (RSV) Vaccine Pt: or over 60 yrs (1 - 1-dose 75+ series) 2019 DEPRESSION SCREENING 10/01/2024 COVID-19 VACCINE ( - 2023-2 5 season) 2025 INFLUENZA VACCINE (#1) 2025 HEPATITIS B VACCINE Aged Out No longe r eligible based on patient's age to complete this topic HIB VACCINE Aged Out No longer eligi ble based on patient's age to complete this topic HPV VACCINE Aged Out No longer eligi ble based on patient's age to complete this topic MENINGOCOCCAL (Group B) VACC INE SHARED DECISION-MAKING Aged Out No longer eligibl e based on patient's age to complete this topic MENINGOCOCCAL GROUPS A/C/Y/W VACCINE Aged Out No longer eligible b ased on patient's age to complete this topic Insurance MEDICARE COMMERCIAL GENERIC MEDICARE MEDICARE SUPPLEMENT PAYOR GENERIC
--- OUTSIDE RECORDS SUMMARY | 2025-08-09 10:13 | XMS_ITS | Encounter Summary ---
Author Organization [facility] Address [address] [place] [address] 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
--- OUTSIDE RECORDS SUMMARY | 2025-08-09 10:13 | XMS_ITS | Clinical Summary ---
Author Organization [facility] Address [address] [place] [id number] Care Team Providers Care Commercial Loan Reviewer Name Role Phone Ben Walker MD Primary Care Provider + Irma Curry MD Unavailable [phone] Kady Kendrick MD Unavailable [phone] Allergies Active Allergy Reactions Criticality Noted Date Comments Trung Inhibitors Cough Low 08/24/2015 Medications atorvastatin (LIPITOR) 10 mg tablet Take 1 tablet (10 mg total) by mouth daily 3 Active nitroglycerin (NITROSTAT) 0.[address] 1 tablet (0.4 mg total) under the tongue every 5 (five) minutes as needed for chest pain If pain persists after 3 doses call 911. 25 tablet 3 1 Active acetaminophen (TYLENOL) 325 mg tablet Take 1 tablet (325 mg total) by mouth every 6 (six) hours as needed 5 Active ibuprofen 200 mg tab/cap Take 2 tablet/capsu le (400 mg total) by mouth every 6 (six) hours as needed 5 Active naproxen (NAPROSYN) 500 mg tablet Take 1 tablet (500 mg total) by mouth 5 Active sulfamethoxazo le-trimethopri m (BACTRIM DS) 800-160 mg per tablet TAKE 1 TABLET BY MOUTH TWICE DAILY FOR 14 DAYS 5 Active traMADoL (ULTRAM) 50 mg tablet Take 1 tablet (50 mg total) by mouth every 6 (six) hours as needed 5 Active Eliquis 5 mg tablet TAKE 1 TABLET(5 MG) BY MOUTH TWICE DAILY 180 tablet 3 5 Active amLODIPine (NORVASC) 10 mg tablet TAKE 1 TABLET(10 MG) BY MOUTH DAILY 90 tablet 3 5 Active spironolactone (ALDACTONE) 25 mg tablet Take 1 tablet (25 mg total) by mouth daily 30 tablet 11 5 026 Active losartan (COZAAR) 50 mg tablet TAKE 1 TABLET(50 MG) BY MOUTH DAILY 90 tablet 2 5 Active losartan (COZAAR) 50 mg tablet TAKE 1 TABLET(50 MG) BY MOUTH DAILY 90 tablet 3 4 025 Discontinued Active Problems Problem Noted Date Diagnosed Date Valvular heart disease 04/26/2023 Assessment & Plan (05/08/2024 10:57 AM CDT): TTE from 2021 noted moderate MR, mild AR and mild to moderate . Asymptomatic today with no evidence of heart failure. Will continue monitoring with serial echocardiograms. Assessment & Plan (04/26/2023 2:47 PM CDT): TTE from 2020 noted moderate MR, moderate TR, mild AR and minimal . Asymptomatic today with no evidence of heart failure. Echo completed today and results pending. Will follow up. Nonrheumatic mitral valve regurgitation 10/12/19 Assessment & Plan (10/12/2022 10:43 AM MAINTENANCE SHOP LABORER): Moderate on ECHO in the past, follow up in 6 moths, ECHO same day. Atrial flutter 03/11/2021 Assessment & Plan (07/27/2025 10:42 AM CDT): Eliquis. Hyperlipidemia 01/12/2020 Assessment & Plan (05/08/2024 10:56 AM CDT): FLP completed by PCP with LDL at goal of < 70. Continue atorvastatin 10 mg daily. Assessment & Plan (04/26/2023 2:48 PM CDT): FLP completed by PCP with LDL at goal of < 70. Continue atorvastatin 10 mg daily. Assessment & Plan (10/12/2022 10:39 AM MAINTENANCE SHOP LABORER): Stable LDL in January 2022. LV (obstructive sleep apnea) 12/26/2018 Ischemic cardiomyopathy 12/23/2018 Assessment & Plan (05/08/2024 10:56 AM CDT): Hx of ischemic cardiomyopathy. LVEF of 55% on TTE from 03/2023. Euvolemic on exam with no signs or symptoms of acute decompensated heart failure. Continue losartan 50 mg daily. Of note, has not tolerated BB in the past due to bradycardia. Assessment & Plan (04/26/2023 2:55 PM CDT): Hx of ischemic cardiomyopathy with improvement in EF with TTE in 2020 noting an EF of 47%. Has some bilateral lower extremity edema today that patient reports is longstanding. Euvolemic on exam with no signs or symptoms of acute decompensated heart failure. Echocardiogram completed today. Will follow up on these results. Continue losartan 50 mg daily. Of note, has not tolerated BB in the past due to bradycardia. Continue Lasix 40 mg daily. Recent labs completed by PCP with stable kidney function. Hx of CABG 12/09/2018 Longstanding persistent atrial fibrillation 11/29 Overview (12/09/2018): S/p MAZE procedure in ~ 2012 Assessment & Plan (05/08/2024 10:58 AM CDT): Stable rate with no symptoms. Follows with EP. Continue close follow up with EP. Continue Eliquis 5 mg BID. Assessment & Plan (04/26/2023 2:50 PM CDT): Stable rate with no symptoms. Follows with EP and is s/p multiple DCCV in the past and Maze and 2 AAD, concern for any further rhythm control strategies to result in need for PPM, pt no interested. Continue close follow up with EP. Continue Eliquis 5 mg BID. Assessment & Plan (10/12/2022 10:41 AM MAINTENANCE SHOP LABORER): Atrial Fib, flutter, follows with Dr. Kendrick sp multiple DCCV in the past and Maze and 2 AAD, concern for any further rhythm control strategies to result in need for PPM, pt no interested. Continue Eliquis 5 mg BID. PVC (premature ventricular contraction) 05/03/20 Assessment & Plan (07/27/2025 10:50 AM CDT): Holter to assess burden. Assessment & Plan (04/26/2023 2:43 PM CDT): Denies any symptoms at this time. Continue follow up with EP. Of note, has not tolerated BB in the past due to bradycardia. Assessment & Plan (10/12/2022 10:29 AM MAINTENANCE SHOP LABORER): Seen in the past by Dr. Kendrick, has not tolerated BB secondary to bradycardia. He remains asymptomatic. Coronary artery disease involving [place] coronar y artery 03/18/2018 Assessment & Plan (05/08/2024 10:56 AM CDT): Status post CABG x 3 in 2012 with ICM and recovery in EF to 47%. He has no chest pain or anginal equivalent today. Maintains a good functional capacity. Continue amlodipine 10 mg daily, atorvastatin 10 mg daily and PRN SL nitro. On eliquis for stroke prophylaxis in setting of afib. Assessment & Plan (04/26/2023 2:45 PM CDT): Status post CABG x 3 in 2012 with ICM and recovery in EF to 47%. He has no chest pain or anginal equivalent today. Maintains a good functional capacity. Continue amlodipine 10 mg daily, atorvastatin 10 mg daily and PRN SL nitro. On eliquis for stroke prophylaxis in setting of afib. Assessment & Plan (10/12/2022 10:38 AM MAINTENANCE SHOP LABORER): Stable CAD with CABG x 3 in 2012 with ICM and recovery of EF to 47%. Continue Losartan, no BB given bradycardia. No TRUNG given allergy. FLP in January 2022 stable with and LDL at goal 52, lipitor 10 mg daily, Norvasc 10 mg daily, lasix 40 mg daily . Repeat ECHO in follow up with Dr. Curry in 6 months, to ensure recovery of EF and to monitor and MR. LBBB (left bundle branch block) 03/18/2018 Nonrheumatic aortic valve insufficiency 03/18/20 Assessment & Plan (10/12/2022 10:42 AM MAINTENANCE SHOP LABORER): Mild AI and minimal on ECHO 11/2020. ECHO and follow up in 6 months. Essential hypertension, benign 03/18/2018 Assessment & Plan (05/08/2024 10:58 AM CDT): Well controlled. Continue amlodipine and losartan. Cardiomyopathy, ischemic 03/18/2018 Assessment & Plan (07/27/2025 10:50 AM CDT): ICM: Mild LV dysfunction. LVEF on ECHO today was read at 52% his BNP is elevated with severe LV dilation. NYHA Class II findings, euvolemic on exam with mild AI and moderate . Will review ECHO findings with Dr. Curry for additional recs - KALLIE vs Valve team referral. Continue GDMT with losartan and norvasc. His resting hr is in the 50s, no BB. Will add an MRA. Dr. Curry in 6 months. BNP came back as elevated over 4k. Sensation of chest tightness 10/18/2012 Encounters Date Type Department Care Team Description 08/04/2025 Results Follow-Up [facility] Cardiology [address] [place] [address] [address] [place] [address] Parisa Kam NP Extended/Correction Holter Patch (>48 hours up to 7 days) 08/04/2025 Results Follow-Up [facility] Cardiology [address] [place] [address] 3 [address] [place] [address] Parisa Kam NP Transthoracic Echo (TTE) Complete W Doppler/CF 07/27/2025 Telephone [facility] Cardiology [facility] 8th [place] [address] [place] [address] Irma Curry MD 07/27/2025 Telephone [facility] Cardiology [facility] 8th [place] [address] [place] [address] Irma Curry MD Test Results 07/23/2025 3:30 PM CDT Ancillary Procedure [facility] Cardiology [address] [place] [address] 8th [place] [address] [place] [address] Ischemic cardiomyopathy; PVC (premature ventricular contraction) 07/23/2025 3:00 PM CDT Lab [facility] [address] [place] [phone] Ischemic cardiomyopathy; PVC (premature ventricular contraction) 07/23/2025 2:30 PM CDT Office Visit [facility] Cardiology [address] [place] [address] [address] [place] [address] Parisa Kam NP Nonrheumatic aortic valve stenosis (Primary Dx); Valvular heart disease; Ischemic cardiomyopathy; PVC (premature ventricular contraction); Atrial flutter, unspecified type (HCC); Cardiomyopathy, ischemic 07/23/2025 12:15 PM CDT - 07/23/2025 11:59 PM CDT Hospital Encounter [facility] Cardiac Diagnostic Lab [address] [place] [phone] Irma Curry MD Nonrheumatic aortic valve stenosis Discharge Disposition: Discharge to home or self care from Last 3 Months Surgical History Surgery Date Site/Laterality Comments [place] CORONARY ARTERY BYPASS 1 CORONARY VENOUS GRAFT CABG - (Added by Conv) Family History Medical History Relation Name Comments Sudden Cardiac Father Family history of sudden cardiac (SCD) - (Added by TW Conv) Relation Name Status Comments Father Social History Tobacco Use Types Packs/Day Years Used Date Smoking Tobacco: Some Days Cigars Smokeless Tobacco: Never Tobacco Cessation:Ready to Q uit: Not Asked; Counseling Given: Not Answered Comments:CIGAR - PRN AUDIT-C Answer Date Recorded Q1: How often do you have a drink containing alc ohol? 2-4 times a month 03/18/2021 Q2: How many drinks containi ng alcohol do you have on a typical day when you are drinking? 1 or 2 03/18/2021 Q3: How often do you have si x or more drinks on one occasion? Never 03/18/2021 Sex and Gender Information Value Date Recorded Sex Assigned at Not on file Legal Sex Male 1:04 AM MAINTENANCE SHOP LABORER Gender Identity Male 03/17/2021 10:28 AM CDT Sexual Orientation Not on file Last Filed Vital Signs Vital Sign Reading Time Taken Comments Blood Pressure 142/68 07/23/2025 1:59 PM CDT Pulse 50 07/23/2025 1:59 PM CDT Temperature 36.7 C (98.1 F) 12/06/2021 10:45 AM MAINTENANCE SHOP LABORER Respiratory Rate 19 03/18/2021 10:15 AM CDT Oxygen Saturation 99% 07/23/2025 1:59 PM CDT Inhaled Oxygen Concentration - - Weight 71.2 kg (157 lb) 07/23/2025 1:59 PM CDT Height 175.3 cm (5' 9) 07/23/2025 1:59 PM CDT Body Mass Index 23.18 07/23/2025 1:59 PM CDT Plan of Treatment Health Maintenance Due Date Last Done Comments Depression Screening 1945 Hepatitis B Screening 1962 Zoster Vaccine (1 of 2) 1994 Well Visit 65+ 2009 Fall Risk Assessment 03/18/2022 03/18/2021 Covid-19 Vaccine (3 - 2024-2 6 season) 2025 12/14/2020, 11/10/2020 Influenza Vaccine (#1) 2025 , 08/16/2023, 09/05/2021, Additional history exists DTaP/Tdap/Td Vaccine (3 - Td or Tdap) 07/11/2031 07/11/2021, 05/10/2015 Pneumococcal vaccine 65+ Completed 11/14/2016, 08/01 Procedures Procedure Name Priority Date/Time Associated Diagnosis Comments EXTENDED/ASSISTED HOLTER PATCH (>48 HOURS UP TO 7 DAYS) Routine 07/23/2025 2:49 PM CDT Ischemic cardiomyopathy PVC (premature ventricular contraction) TRANSTHORACIC ECHO (TTE) COMPLETE W DOPPLER/CF WO CONTRAST Routine 07/23/2025 1:51 PM CDT Nonrheumatic aortic valve stenosis EGFR Routine 07/23/2025 1:03 PM CDT Ischemic cardiomyopathy PVC (premature ventricular contraction) BASIC METABOLIC PANEL Routine 07/23/2025 1:03 PM CDT Ischemic cardiomyopathy PVC (premature ventricular contraction) LIPID PANEL Routine 07/23/2025 1:03 PM CDT Ischemic cardiomyopathy PVC (premature ventricular contraction) PRO B-TYPE NATRIURETIC PEPTIDE Routine 07/23/2025 1:03 PM CDT Ischemic cardiomyopathy PVC (premature ventricular contraction) from Last 3 Months Results * Extended/Correction Holter Patch (>48 hours up to 7 days) (07/23/2025 2:49 PM CDT) Anatomical Region Laterality Modality Electrocardiogra phy 07/23/2025 2:46 PM CDT Narrative 07/31/2025 2:[address] [facility] [place] [address] HOLTER MONITOR Patient Name: BRIAN COLLIER S : 1945 (79y 9m) Sex: M Study Date: 07/23/2025 02:46:33 PM Ht(Inch): Wt(Lb): BSA: Tech: Location: [facility] Order Provider: PARISA KAM BMI: Ref Provider: PARISA KAM PROCEDURES: Holter Report: EXTENDED/ASSISTED HOLTER PATCH (>48 HOURS UP TO 7 DAYS) [[id number]]. Enrollment Period: 2025-07-23 00:00:00 through 2025-07-26 00:00:00. Location: [facility]. INDICATIONS: I25.5 Ischemic cardiomyopathy and I49.3 Ventricular premature depolarization. FINDINGS: Holter Data: Min Rate: 32 BPM Min Rate Timestamp: 2025-07-24 09:57:26 Bradycardia (% of study): 0 Max Rate: 182 BPM Max Rate Timestamp: 2025-07-25 08:19:23 Tachycardia (% of study): 0 Mean Rate: 54 BPM AFib (% of study): 100 Singlets (PACs): 0 events Couplets (PACs): 0 events Total (PACs): 0 events Singlets (PVCs): 24292 events Couplets (PVCs): 253 events Total (VE): 53358 events Runs (VT): 65 events Total beats: [id number] SIGNIFICANT PAUSES: 0 >3 sec Protocol: Recording Duration (Ordered): 175351 Recording Duration (Actual): 823129.31 SUMMARY: *The predominant rhythm was Atrial Fibrillation/Flutter with Frequent Ventricular Ectopy. *The Maximum Heart Rate recorded was 182 bpm, 07/25 08:19:23, the Minimum Heart Rate recorded was 32 bpm, 07/24 09:57:26, and the Average Heart Rate was 54 bpm. *There were 11,033 VE beats with a burden of 5 %. There were 12 occurrences of Ventricular Tachycardia with the Fastest episode 182 bpm, 07/25 08::19, and the Longest episode 14 beats, 07/25 08:44:31. *The study included an Atrial Fibrillation/Flutter [place] of >99 % with <1 % in RVR and 78 % in SVR. The longest episode was 2d 23h 59m 48.3s, 07/23 14:46:44, and the Fastest episode was 107 bpm, 07/23 14:46:44. *Other rhythms in this study include: Ventricular Run. *There were 0 Patient Triggers.;. Short runs of VT tend to be monomorphic. Longest run of 14 beats @ 182 bpm terminates in sinus rhythm. CONCLUSIONS: 1. *The predominant rhythm was Atrial Fibrillation/Flutter with Frequent Ventricular Ectopy. *The Maximum Heart Rate recorded was 182 bpm, 07/25 08:19:23, the Minimum Heart Rate recorded was 32 bpm, 07/24 09:57:26, and the Average Heart Rate was 54 bpm. *There were 11,033 VE beats with a burden of 5 %. There were 12 occurrences of Ventricular Tachycardia with the Fastest episode 182 bpm, 07/25 08:19:19, and the Longest episode 14 beats, 07/25 08:44:31. *The study included an Atrial Fibrillation/Flutter [place] of >99 % with <1 % in RVR and 78 % in SVR. The longest episode was 2d 23h 59m 48.3s, 07/23 14:46:44, and the Fastest episode was 107 bpm, 07/23 14:46:44. *Other rhythms in this study include: Ventricular Run. *There were 0 Patient Triggers.; Short runs of VT tend to be monomorphic. Longest run of 14 beats @ 182 bpm terminates in sinus rhythm. 2. I have reviewed the PDF and all the ECG strips. I agree with the interpretations as detailed in the report 3. The PDF can be found in the Epic Patient chart. Please go to the Cardiology tab, click on the holter or event exam. Scroll to bottom where the ORDER LEVEL Documents reside and click the blue link to the pdf. Electronically Signed By: Satnam Lazo Jr., M.D. 07/31/2025 2:27:03 PM CDT Procedure Note Satnam Lazo MD PhD - 07/31/2025 [facility] [place] [address] HOLTER MONITOR Patient Name: BRIAN COLLIER S : 1945 (79y 9m) Sex: M Study Date: 07/23/2025 02:46:33 PM Ht(Inch): Wt(Lb): BSA: Tech: Location: [facility] Order Provider: PARISA KAM BMI: Ref Provider: PARISA KAM PROCEDURES: Holter Report: EXTENDED/ASSISTED HOLTER PATCH (>48 HOURS UP TO 7 DAYS)[[id number]]. Enrollment Period: 2025-07-23 00:00:00 through 2025-07-26 00:00:00. Location: [facility]. INDICATIONS: I25.5 Ischemic cardiomyopathy and I49.3 Ventricular prematuredepolarization. FINDINGS: Holter Data: Min Rate: 32 BPM Min Rate Timestamp: 2025-07-24 09:57:26 Bradycardia (% of study): 0 Max Rate: 182 BPM Max Rate Timestamp: 2025-07-25 08:19:23 Tachycardia (% of study): 0 Mean Rate: 54 BPM AFib (% of study): 100 Singlets (PACs): 0 events Couplets (PACs): 0 events Total (PACs): 0 events Singlets (PVCs): 82551 events Couplets (PVCs): 253 events Total (VE): 28510 events Runs (VT): 65 events Total beats: 264256 SIGNIFICANT PAUSES: 0 >3 sec Protocol: Recording Duration (Ordered): [id number] Recording Duration (Actual): 028941.31 SUMMARY: *The predominant rhythm was Atrial Fibrillation/Flutter withFrequent Ventricular Ectopy. *The Maximum Heart Rate recorded was 182 bpm, 07/2508:19:23, the Minimum Heart Rate recorded was 32 bpm, 07/24 09:57:26, and the AverageHeart Rate was 54 bpm. *There were 11,033 VE beats with a burden of 5 %. There were 12occurrences of Ventricular Tachycardia with the Fastest episode 182 bpm, 07/25 08:19:19,and the Longest episode 14 beats, 07/25 08:44:31. *The study included an AtrialFibrillation/Flutter [place] of >99 % with <1 % in RVR and 78 % in SVR. The longest episode was2d 23h 59m 48.3s, 07/23 14:46:44, and the Fastest episode was 107 bpm, 07/2314:46:44. *Other rhythms in this study include: Ventricular Run. *There were 0 PatientTriggers.;. Short runs of VT tend to be monomorphic. Longest run of 14 beats @ 182 bpmterminates in sinus rhythm. CONCLUSIONS: 1. *The predominant rhythm was Atrial Fibrillation/Flutter with FrequentVentricular Ectopy. *The Maximum Heart Rate recorded was 182 bpm, 07/25 08:19:23, theMinimum Heart Rate recorded was 32 bpm, 07/24 09:57:26, and the Average Heart Rate was54 bpm. *There were 11,033 VE beats with a burden of 5 %. There were 12 occurrences ofVentricular Tachycardia with the Fastest episode 182 bpm, 07/25 08:19:19, and theLongest episode 14 beats, 07/25 08:44:31. *The study included an Atrial Fibrillation/FlutterBurden of >99 % with <1 % in RVR and 78 % in SVR. The longest episode was 2d 23h 59m48.3s, 07/23 14:46:44, and the Fastest episode was 107 bpm, 07/23 14:46:44. *Otherrhythms in this study include: Ventricular Run. *There were 0 Patient Triggers.; Shortruns of VT tend to be monomorphic. Longest run of 14 beats @ 182 bpm terminates in sinusrhythm. 2. I have reviewed the PDF and all the ECG strips. I agree with theinterpretations as detailed in the report 3. The PDF can be found in the Epic Patient chart. Please go to theCardiology tab, click on the holter or event exam. Scroll to bottom where the ORDER LEVELDocuments reside and click the blue link to the pdf. Electronically Signed By: Satnam Lazo Jr., M.D. 07/31/2025 2:27:03 PM CDT us Parisa Kam NP [facility] PROCED URES Final Result * TRANSTHORACIC ECHO (TTE) COMPLETE W DOPPLER/CF WO CONTRAST (07/23/2025 1:51 PM CDT) EF Mod BP 52 % CONS SCIMAGE Anatomical Region Laterality Modality Ultrasound 07/23/2025 12:5 0 PM CDT Narrative 07/24/2025 12:[address] [facility] [place] [address] Transthoracic Echocardiographic Report Patient Name: BRIAN COLLIER S : 1945 (79y 9m) Sex: M Study Date: 07/23/2025 12:50:05 PM Ht(Inch): 69 Wt(Lb): 158.07 BSA: 1.87 Senior Account Executive: Caryl Livingston RDCS Location: [facility] Order Provider: IRMA CURRY Heart Rate: 61 BMI: 23.34 BP: 132 / 59 Ref Provider: IRMA CURRY Fellow: Jose Maria Hernandez MD PROCEDURES: Echocardiographic Report: Transthoracic complete echo with strain imaging, 2D, spectral and tissue Doppler, color flow Doppler, M-mode. INDICATIONS: I35.0 Nonrheumatic aortic (valve) stenosis. CONCLUSIONS: 1. Severely dilated left ventricle based on volume index. Low-normal left ventricular systolic function. The Ejection Fraction (Avina's) is measured at 52 %. The average global longitudinal strain is abnormal based on suboptimal images with [id number] variability. The ventricular septum is mildly flattened in diastole, consistent with right ventricular volume overload. 2. Right ventricular dilatation. Normal right ventricular systolic function based on RV FAC 46%. The average right ventricular strain is abnormal. 3. Severely dilated left atrium. 4. Right atrial dilatation. 5. Moderate mitral valve regurgitation (PISA: ERO 0.2 cm2, reg vol 38 mL; Volumetric: less severe). 6. 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 Mild aortic valve regurgitation. Moderate aortic valve stenosis (AVAI 0.61 cm2/m2; SVI 47 mL/m2). The mean transaortic gradient is 20 mmHg. Aortic valve dimensionless index is 0.31. 7. Mild-moderate tricuspid regurgitation. 8. The IVC was >2.1 cm and collapsibility <50% (est. RA pressure 15 mmHg). 9. Estimated pulmonary artery systolic pressure is consistent with moderate pulmonary hypertension (50-70mmHg). COMPARISONS: On [id number] comparison with prior TTE on 04/26/23, the AV mean gradient is somewhat higher and more severe today; LVEF appears similar. ATTESTATION: I have personally reviewed this study with a fellow in a teaching setting and attest to the findings and conclusions. Fellow that participated in the exam is Jose Maria Hernandez MD. DISCLAIMER: The study images and the final report will be retained in the patient chart by the Echo Laboratory for the legally required time period. This chart constitutes the legal record of any testing performed. FINDINGS: Left Ventricle: Severely dilated left ventricle based on volume index. Eccentric LV hypertrophy. Low-normal left ventricular systolic function. The Ejection Fraction (Avina's) is measured at 52 %. Left ventricular diastolic function is indeterminate due to the presence of atrial fibrillation during the study. The average global longitudinal strain is abnormal based on suboptimal images with [id number] variability. The LV global strain is: -14.2 %. The ventricular septum is mildly flattened in diastole, consistent with right ventricular volume overload. Regional Wall Motion: There are no regional wall motion abnormalities. Right Ventricle: Right ventricular dilatation. Normal right ventricular systolic function based on RV FAC 46%. The average right ventricular strain is abnormal. RV GLS - 15.7%. Left Atrium: Severely dilated left atrium. Right Atrium: Right atrial dilatation. Chiari network in right atrium (normal variant). Mitral Valve: Mitral valve leaflets appear mildly thickened. Mild mitral annular calcification. Moderate mitral valve regurgitation (PISA: ERO 0.2 cm2, reg vol 38 mL; Volumetric: less severe). The mitral regurgitation jet is central. No stenosis present. Aortic Valve: The aortic valve is functionally bicuspid with fusion of non- coronary to left-coronary leaflet commissure. Moderately calcified aortic valve leaflets. Mildly restricted aortic cusps. Mild aortic valve regurgitation. Moderate aortic valve stenosis (AVAI 0.61 cm2/m2; SVI 47 mL/m2). The mean transaortic gradient is 20 mmHg. The aortic valve area by the continuity equation (using VTI) is 1.2 cm2. Aortic valve dimensionless index is 0.31. Tricuspid Valve: Normal tricuspid valve structure. Mild-moderate tricuspid regurgitation. No tricuspid valve stenosis. Although color-flow Doppler suggests mild TR, diastolic septal flattening noted which is more consistent with moderate TR. Pulmonic Valve: Normal pulmonic valve structure. Mild pulmonic regurgitation. No pulmonic valve stenosis present. Pericardium: Normal pericardium without pericardial effusion. No pericardial effusion. Aorta: Normal aortic root size at sinuses of Valsalva. Dilation of the ascending aorta when indexed. IVC: The IVC was >2.1 cm and collapsibility <50% (est. RA pressure 15 mmHg). The estimated RA pressure is 15 mmHg. PASP: The estimated pulmonary artery systolic pressure is 54.0 mmHg. Estimated pulmonary artery systolic pressure is consistent with moderate pulmonary hypertension (50-70mmHg). Rhythm: Frequent isolated ventricular premature contractions vs. aberrant conduction noted during the exam. The rhythm during the study was atrial fibrillation. Normal ventricular response (VR ~55-70 bpm). MEASUREMENTS: 2D/MM Value Range Doppler Value Range LVIDd 2D 5.3 cm [ 4.2 - 5.8 ] AV Peak Armando 2.9 m/s [ 1.0 - 1.7 ] LVIDs 2D 3.9 cm [ 2.5 - 4.0 ] AV Peak PG 33 mmHg IVSd 2D 1.1 cm [ 0.6 - 1.0 ] AV Mean PG 20 mmHg LVPWd 2D 1.1 cm [ 0.6 - 1.0 ] AV VTI 75 cm LV Thickness Ratio 1.0 LVOT Peak Armando 1.0 m/s [ 0.7 - 1.1 ] RWT 0.42 LVOT VTI 23 cm EDV Mod BP 188 ml [ 62 - 150 ] LVOT Diam 2.2 cm LV EDV Index 101 ml/m2 NELLY VTI 1.2 cm2 ESV Mod BP 91 ml [ 21 - 61 ] LVOT/AV VTI 0.31 - Dimensionless index (DVI) EF Mod BP 52 % [ 52 - 72 ] AI Peak Armando 3.1 m/s LV GLS -14.2 % [ -25.0 - -18.0 ] AI Peak PG 39 mmHg LA Length 4C 6.2 cm AI Decel Time 1025 sec LA Length 2C 6.0 cm AI Decel [place] 1181 m/s2 LA Volume BP 100 ml AI PHT 963 msec LA Volume Index 54 ml/m2 [ 16 - 34 ] MV Peak Armando 0.7 m/s MV Annulus 2D 2.6 cm MV Peak PG 2 mmHg RV Base Dimen 2D 4.8 cm [ 2.5 - 4.2 ] MV Mean PG 1 mmHg RV Mid Dimen 2D 3.3 cm MV VTI 13 cm RV ED Area 25 cm2 [ 10 - 24 ] MR Peak Armando 5.2 m/s RV EDV 2D 64 ml MR Peak PG 108 mmHg RV ES Area 13 cm2 [ 3 - 15 ] MV Alias Armando 0.393 m/s RV ESV 2D 27 ml MR VTI 191 cm RV FAC 46 % [ 35 - 63 ] MR Flow 88.9 ml/sec TAPSE 1.0 cm [ 1.7 - 5.0 ] MR PISA 0.6 RA Volume 85 ml MR EROA 0.20 cm2 RA Volume Index 45 ml/m2 PISA Regurgitant Volume 38 ml AoR Diam 2D 3.3 cm [ 3.1 - 3.7 ] RV S` 8.7 cm/sec Ao Root Index 1.8 cm/m2 [ 1.0 - 2.0 ] TR Peak Armando 3.1 m/s [ 1.0 - 2.8 ] Asc Ao Diam 2D 4.2 cm TR Peak PG 39 mmHg Asc Ao Index 2.2 cm/m2 RA Pressure 15 mmHg RVSP 54 mmHg Electronically Signed By: Yuridia Magallanes MD 07/24/2025 12:29:48 PM CDT CC: Irma Curry MD Procedure Note De Yuridia Stacy MD - 07/24/2025 [facility] [place] [address] Transthoracic Echocardiographic Report Patient Name: BRIAN COLLIER S : 1945 (79y 9m) Sex: M Study Date: 07/23/2025 12:50:05 PM Ht(Inch): 69 Wt(Lb): 158.07 BSA: 1.87 Senior Account Executive: Caryl Livingston RDCS Location: [facility] Order Provider:IRMA CURRY Heart Rate: 61 BMI: 23.34 BP: 132 / 59 Ref Provider: IRMA CURRY Fellow: Jose Maria Hernandez MD PROCEDURES: Echocardiographic Report: Transthoracic complete echo with strain imaging,2D, spectral and tissue Doppler, color flow Doppler, M-mode. INDICATIONS: I35.0 Nonrheumatic aortic (valve) stenosis. CONCLUSIONS: 1. Severely dilated left ventricle based on volume index. Low-normal leftventricular systolic function. The Ejection Fraction (Avina's) is measured at 52 %.The average global longitudinal strain is abnormal based on suboptimal images [id number]-vlrt variability. The ventricular septum is mildly flattened in diastole,consistent with right ventricular volume overload. 2. Right ventricular dilatation. Normal right ventricular systolicfunction based on RV FAC 46%. The average right ventricular strain is abnormal. 3. Severely dilated left atrium. 4. Right atrial dilatation. 5. Moderate mitral valve regurgitation (PISA: ERO 0.2 cm2, reg vol 38 mL;Volumetric: less severe). 6. 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 Mild aortic valve regurgitation. Moderate aortic valvestenosis (AVAI 0.61 cm2/m2; SVI 47 mL/m2). The mean transaortic gradient is 20 mmHg.Aortic valve dimensionless index is 0.31. 7. Mild-moderate tricuspid regurgitation. 8. The IVC was >2.1 cm and collapsibility <50% (est. RA pressure 15mmHg). 9. Estimated pulmonary artery systolic pressure is consistent withmoderate pulmonary hypertension (50-70mmHg). COMPARISONS: On [id number] comparison with prior TTE on 04/26/23, the AV mean gradientis somewhat higher and more severe today; LVEF appears similar. ATTESTATION: I have personally reviewed this study with a fellow in a teaching settingand attest to the findings and conclusions. Fellow that participated in the exam is MD Reva. DISCLAIMER: The study images and the final report will be retained in the patientchart by the Echo Laboratory for the legally required time period. This chart constitutesthe legal record of any testing performed. FINDINGS: Left Ventricle: Severely dilated left ventricle based on volume index.Eccentric LV hypertrophy. Low-normal left ventricular systolic function. The EjectionFraction (Avina's) is measured at 52 %. Left ventricular diastolic function isindeterminate due to the presence of atrial fibrillation during the study. The averageglobal longitudinal strain is abnormal based on suboptimal images with [id number]. The LV global strain is: -14.2 %. The ventricular septum is mildly flattened indiastole, consistent with right ventricular volume overload. Regional Wall Motion: There are no regional wall motion abnormalities. Right Ventricle: Right ventricular dilatation. Normal right ventricularsystolic function based on RV FAC 46%. The average right ventricular strain is abnormal. RVGLS - 15.7%. Left Atrium: Severely dilated left atrium. Right Atrium: Right atrial dilatation. Chiari network in right atrium(normal variant). Mitral Valve: Mitral valve leaflets appear mildly thickened. Mild mitralannular calcification. Moderate mitral valve regurgitation (PISA: ERO 0.2 cm2, regvol 38 mL; Volumetric: less severe). The mitral regurgitation jet is central. Nostenosis present. Aortic Valve: The aortic valve is functionally bicuspid with fusion ofnon- coronary to left-coronary leaflet commissure. Moderately calcified aortic valveleaflets. Mildly restricted aortic cusps. Mild aortic valve regurgitation. Moderate aorticvalve stenosis (AVAI 0.61 cm2/m2; SVI 47 mL/m2). The mean transaortic gradient is 20mmHg. The aortic valve area by the continuity equation (using VTI) is 1.2 cm2. Aortic valvedimensionless index is 0.31. Tricuspid Valve: Normal tricuspid valve structure. Mild-moderate tricuspidregurgitation. No tricuspid valve stenosis. Although color-flow Doppler suggests mild TR,diastolic septal flattening noted which is more consistent with moderate TR. Pulmonic Valve: Normal pulmonic valve structure. Mild pulmonicregurgitation. No pulmonic valve stenosis present. Pericardium: Normal pericardium without pericardial effusion. Nopericardial effusion. Aorta: Normal aortic root size at sinuses of Valsalva. Dilation of theascending aorta when indexed. IVC: The IVC was >2.1 cm and collapsibility <50% (est. RA pressure 15mmHg). The estimated RA pressure is 15 mmHg. PASP: The estimated pulmonary artery systolic pressure is 54.0 mmHg.Estimated pulmonary artery systolic pressure is consistent with moderate pulmonaryhypertension (50-70mmHg). Rhythm: Frequent isolated ventricular premature contractions vs. aberrantconduction noted during the exam. The rhythm during the study was atrialfibrillation. Normal ventricular response (VR ~55-70 bpm). MEASUREMENTS: 2D/MM Value Range DopplerValue Range LVIDd 2D 5.3 cm [ 4.2 - 5.8 ] AV Peak Vel2.9 m/s [ 1.0 - 1.7 ] LVIDs 2D 3.9 cm [ 2.5 - 4.0 ] AV Peak PG33 mmHg IVSd 2D 1.1 cm [ 0.6 - 1.0 ] AV Mean PG20 mmHg LVPWd 2D 1.1 cm [ 0.6 - 1.0 ] AV VTI75 cm LV Thickness Ratio 1.0 LVOT Peak Vel1.0 m/s [ 0.7 - 1.1 ] RWT 0.42 LVOT VTI23 cm EDV Mod BP 188 ml [ 62 - 150 ] LVOT Diam2.2 cm LV EDV Index 101 ml/m2 NELLY VTI1.2 cm2 ESV Mod BP 91 ml [ 21 - 61 ] LVOT/AV VTI0.31 - Dimensionless index (DVI) EF Mod BP 52 % [ 52 - 72 ] AI Peak Vel3.1 m/s LV GLS -14.2 % [ -25.0 - -18.0 ] AI Peak PG39 mmHg LA Length 4C 6.2 cm AI Decel [id number] sec LA Length 2C 6.0 cm AI Decel Ndldt3726 m/s2 LA Volume BP 100 ml AI BLY077 msec LA Volume Index 54 ml/m2 [ 16 - 34 ] MV Peak Vel0.7 m/s MV Annulus 2D 2.6 cm MV Peak PG2 mmHg RV Base Dimen 2D 4.8 cm [ 2.5 - 4.2 ] MV Mean PG1 mmHg RV Mid Dimen 2D 3.3 cm MV VTI13 cm RV ED Area 25 cm2 [ 10 - 24 ] MR Peak Vel5.2 m/s RV EDV 2D 64 ml MR Peak PG108 mmHg RV ES Area 13 cm2 [ 3 - 15 ] MV Alias Vel0.393 m/s RV ESV 2D 27 ml MR OZN643 cm RV FAC 46 % [ 35 - 63 ] MR Flow88.9 ml/sec TAPSE 1.0 cm [ 1.7 - 5.0 ] MR PISA0.6 RA Volume 85 ml MR EROA0.20 cm2 RA Volume Index 45 ml/m2 PISA RegurgitantVolume 38 ml AoR Diam 2D 3.3 cm [ 3.1 - 3.7 ] RV S`8.7 cm/sec Ao Root Index 1.8 cm/m2 [ 1.0 - 2.0 ] TR Peak Vel3.1 m/s [ 1.0 - 2.8 ] Asc Ao Diam 2D 4.2 cm TR Peak PG39 mmHg Asc Ao Index 2.2 cm/m2 RA Fmfvahyw35 mmHg RVSP 54 mmHg Electronically Signed By: Yuridia Magallanes MD 07/24/2025 12:29:48 PM CDT CC: Irma Curry MD us Irma Curry MD CV ECHO PROCEDURES Final Resu lt * (ABNORMAL) eGFR (07/23/2025 1:03 PM CDT) Pathologist [facility] [place] eGFR 53(L) >=60 mL/min/1. 73 m2 Comment: Interpretive Data Reference Interval Normal >/= 90 mL/min/1.73m2 Mildly decreased* 60 - 89 mL/min/1.73m2 Mildly to moderately decreased 45 - 59 mL/min/1.73m2 Moderately to severely decreased 30 - 44 mL/min/1.73m2 Severely decreased 15 - 29 mL/min/1.73m2 Kidney Failure < 15 mL/min/1.73m2 *Relative to young adult level Estimated glomerular filtration rate is determined by the 2020 CKD-EPI equation recommended by the National Kidney Foundation (A Unifying Approach to GFR Estimation: Recommendations of the NKF-ASK Task Force on Reassessing the Inclusion of Race in Diagnosing Kidney Disease, JASN 2020). The CKD-EPI equation should not be used for patients with unstable renal function and has not been validated in children and those over 70. Current interpretive data was last reviewed 2021. Blood 07/23/2025 1:03 PM CDT 07/23/2025 3:22 PM CDT us Parisa Kam PST SUPERVISOR LAB BLOOD ORDERABLES Final Result [facility] Department [place] [address] * (ABNORMAL) Pro B-type natriuretic peptide (07/23/2025 1:03 PM CDT) NT-proBNP 4,601(H) <=450 pg/mL Comment: Interpretive Comments: A. Dyspnea in Acute Care Setting All Ages: < 300 pg/ml, acute heart failure unlikely. < 50 yrs: 300 - 450 pg/ml, further investigation warranted. > 450 pg/ml, acute heart failure likely. 50 - 74 yrs: 300 - 900 pg/ml, further investigation warranted. > 900 pg/ml, acute heart failure likely . > or = 75 yrs: 450 - 1800 pg/ml, further investigation warranted. > 1800 pg/ml, acute heart failure likely. B. Non-acute Setting < 75 yrs < 125 pg/ml, rules out heart failure. > or = 125 pg/ml, further investigation warranted. > or = 75 yrs < 450 pg/ml, rules out heart failure. > or = 450 pg/ml, further investigation warranted. - Knowledge of each individual patient's NT-proBNP range may be more useful than using similar cut-points for every patient. Please note that marked elevations in NT-proBNP levels may be observed in state other than Left Ventricular Congestive Failure, including: acute coronary syndromes, right heart strain/failure (including pulmonary embolism and cor pulmonale), critical illness, renal failure, as well as advanced age. - References: 1. Aury BARRIOS et.al. Eur Heart J. 2006:27:330-337. 2. Sirisha PERES, Sonia ALVARADO. J. AM Mei Cardiol: Cardiovasc Imag. 2009;2: 216- 225. Interpretive Data Last Revised Date: 2018. Blood 07/23/2025 1:03 PM CDT 07/23/2025 3:08 PM CDT us Parisa Kam NP LAB BLOOD ORDERABLES Final Result [facility] Department [place] [address] * Lipid panel (07/23/2025 1:03 PM CDT) Cholesterol 105 30 - 199 mg/dL Comment: Interpretive Data Ages < or = 19 years Acceptable: <170 mg/dL Borderline high: 170-199 mg/dL High: >or= 200 mg/dL Ages > or = 20 years Desirable: <200 mg/dL Borderline high: 200-239 mg/dL High: >or= 240 mg/dL Literature References: 1. Expert Panel on Integrated Guidelines for Cardiovascular Health and Risk Reduction in Children and Adolescents. Pediatrics 2011;128:S213 2. NCEP Expert Panel. Circulation 2004;110:227 Current Interpretive Data was last revised on 2018. Triglycerides 95 <=149 mg/dL [facility] Comment: Interpretive Data Ages < or = 9 years Acceptable: <75 mg/dL Borderline high: 75-99 mg/dL High: >or= 100 mg/dL Ages 10 to 20 years Acceptable: <90 mg/dL Borderline high: 90-129 mg/dL High: >or= 130 mg/dL Ages > or = 20 years Desirable: <150 mg/dL Borderline high: 150-199 mg/dL High: 200-499 mg/dL Very high: >or= 499 mg/dL Literature References: 1. Expert Panel on Integrated Guidelines for Cardiovascular Health and Risk Reduction in Children and Adolescents. Pediatrics 2011;128:S213 2. NCEP Expert Panel. Circulation 2004;110:227 Current Interpretive Data was last revised on 2018. HDL 44 >=40 mg/dL [facility] Comment: Interpretive Data Ages < or = 19 years Acceptable: >45 mg/dL Borderline low: 40-45 mg/dL Low: <40 mg/dL Ages > or = 20 years Desirable: >or= 60 mg/dL Low: <40 mg/dL Literature References: 1. Expert Panel on Integrated Guidelines for Cardiovascular Health and Risk Reduction in Children and Adolescents. Pediatrics 2011;128:S213 2. NCEP Expert Panel. Circulation 2004;110:227 Current Interpretive Data was last revised on 2018. LDL, calculated 43 <=129 mg/dL [facility] Comment: Interpretive Data Ages < or = 19 years Acceptable: <110 mg/dL Borderline high: 110-129 mg/dL High: >or= 130 mg/dL Ages > or = 20 years Optimal: <100 mg/dL Near optimal: 100-129 mg/dL Borderline high: 130-159 mg/dL High: >160 mg/dL Calculated using the Db LDL-C estimating equation. This equation was implemented on 2024. Prior to this date LDL-C was estimated using the Friedewald equation. Literature References: 1. Expert Panel on Integrated Guidelines for Cardiovascular Health and Risk Reduction in Children and Adolescents. Pediatrics 2011;128:S213 2. NCEP Expert Panel. Circulation 2004;110:227 3. Db Alexander al. SHAW Cardiol. 2020 January 29;5(5):540-548. doi: 10.1001/jamacardio.2020.0013 Current Interpretive Data was last revised on 2024. Non-HDL Cholesterol 61 mg/dL [facility] Comment: Interpretive Data Ages < or = 19 years Acceptable: <120 mg/dL Borderline high: 120-144 mg/dL High: >145 mg/dL Ages > or = 20 years When triglycerides are >200 mg/dL, Non-HDL cholesterol is a secondary target of therapy with treatment goals that are 30 mg/dL greater than the LDL cholesterol target. Literature References: 1. Expert Panel on Integrated Guidelines for Cardiovascular Health and Risk Reduction in Children and Adolescents. Pediatrics 2011;128:S213 2. NCEP Expert Panel. Circulation 2004;110:227 Current Interpretive Data was last revised on 2018. Chol/HDL ratio 2 [facility] Blood 07/23/2025 1:03 PM CDT 07/23/2025 3:08 PM CDT Parisa Kam PST SUPERVISOR LAB BLOOD ORDERABLES Final Result [facility] Department [place] [address] * (ABNORMAL) Basic metabolic panel (07/23/2025 1:03 PM CDT) Sodium 144 135 - 145 mmol/L Potassium, pl 4.3 3.3 - 4.9 mmol/L [facility] Chloride 109 97 - 110 mmol/L [facility] CO2 27 22 - 32 mmol/L [facility] Anion gap 8 2 - 15 mmol/L [facility] BUN 15 6 - 25 mg/dL [facility] Creatinine 1.36(H) 0.80 - 1.30 mg/dL [facility] Glucose 104 70 - 199 mg/dL [facility] Comment: Interpretive Data Fasting glucose >/= 126 mg/dl is diagnostic for diabetes. Fasting is defined as no caloric intake for at least 8 hours. Fasting glucose between 100 mg/dl to 125 mg/dl is diagnostic of prediabetes. In a patient with classic symptoms of hyperglycemia or hyperglycemic crisis, a random glucose >/= 200 mg/dl is diagnostic for diabetes. In the absence of unequivocal hyperglycemia, results should be confirmed by repeat testing. The classification and Diagnosis of Diabetes Diabetes Care 202; 46: S19-S40. Current interpretive data was last revised 2022. Calcium 9.1 8.5 - 10.3 mg/dL [facility] Blood 07/23/2025 1:03 PM CDT 07/23/2025 3:08 PM CDT us Parisa Kam PST SUPERVISOR LAB BLOOD ORDERABLES Final Result Performing Organization Address City/State/[facility] Co de Phone Number [facility] Department [place] [address] from Last 3 Months Insurance MEDICARE [employer] [facility] MEDICARE COMMERCIAL GENERIC AETNA AETNA SENIOR SUPPLEMENT MEDICARE AETNA AETNA SENIOR SUPPLEMENT MEDICARE COMMERCIAL GENERIC Care Teams Commercial Loan Reviewer Relationship Specialty Start Date End Date Ben Walker MD PCP - General 02/28/18 Irma Curry MD Referring Physician Cardiology 12/09/18 Kady Kendrick MD Referring Physician Cardiology 12/09/18
--- OUTSIDE RECORDS SUMMARY | 2025-08-09 10:13 | XMS_ITS | Encounter Summary ---
Author Organization [facility] Address [address] [place] [address] Phone Care Team Providers Care Paper Machine Supervisor Name Role Phone Ben Walker MD Primary Care Provider + Pacheco Gilmore MD Unavailable [phone] Kady Kendrick MD Unavailable [phone] Encounter Details Date Type Department Care Team (Late st Contact Info) Description 07/27/2025 Telephone [facility] Medicine Cardiology [address] 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 He can be reached at [phone]. documented in this encounter Plan of Treatment Not on file documented as of this encounter Visit Diagnoses Not on filedocumented in this encounter Care Teams Paper Machine Supervisor Relationship Specialty Start Date End Date Ben Walker MD PCP - General 02/28/18 Pacheco Gilmore MD Referring Physician Cardiology 12/09/18 Kady Kendrick MD Referring Physician Cardiology 12/09/18 documented as of this encounter
--- OUTSIDE RECORDS SUMMARY | 2025-08-09 10:13 | XMS_ITS | Encounter Summary ---
Author Organization [facility] Address [address] [place] [address] Phone Care Team Providers Care Executor Of Estate Name Role Phone Ben Walker MD Primary Care Provider + Pacheco Gilmore MD Unavailable [phone] Kady Kendrick MD Unavailable [phone] Encounter Details Date Type Department Care Team (Late st Contact Info) Description 08/04/2025 Results Follow-Up [facility] Medicine Cardiology [address] [facility] [address] [place] [address] Parisa Mckeon, STEVEN [address] [address] Extended/Custodial Holter Patch (>48 hours up to 7 days) Social History Tobacco Use Types Packs/Day Years [...] on file 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
--- OUTSIDE RECORDS SUMMARY | 2025-08-09 10:16 | XMS_ITS | Encounter Summary ---
Author Organization [facility] Address [address] [place] [phone] Phone Care Team Providers Care Devops Name Role Phone Ben Walker MD Primary Care Provider [phone] Pacheco Gilmore MD Unavailable Leif Mendoza MD Unavailable [phone] Paul Veras MD Unavailable Irvin Flores PAC Unavailable [phone] Kev Angeles MD Unavailable Kady Kendrick MD Unavailable [phone] Arcenio Roberson MD Unavailable Reason for Referral * Radiology Services (Routine) - Closed Specialty Diagnoses / Procedures Referred By Contac t Referred To Contact Radiology Diagnoses Hip pain Procedures XR FEMUR MIN 2V BILATERAL Paul Veras MD [address] [place] [address] Phone: tel: fax: Referral ID Status Reason Start Date Expiration Date Visits Re quested Visits Authorized [id number] Closed 11/19/2021 1 1 N FILTERER * Radiology Services (Routine) - Closed Specialty Diagnoses / Procedures Referred By Contac t Referred To Contact Radiology Diagnoses Hip pain Procedures XR SACROILIAC JOINTS, COMPLETE Paul Veras MD [address] [place] [address] Phone: tel: fax: Referral ID Status Reason Start Date Expiration Date Visits Re quested Visits Authorized [id number] Closed 11/19/2021 1 1 N FILTERER * Radiology Services (Routine) - Closed Specialty Diagnoses / Procedures Referred By Contac t Referred To Contact Radiology Diagnoses Hip pain Procedures XR HIP MIN 5 VIEW W/PELVIS - VIDAL Paul Veras MD [address] [place] [address] Phone: tel: fax: Referral ID Status Reason Start Date Expiration Date Visits Re quested Visits Authorized [id number] Closed 11/19/2021 1 1 N FILTERER Encounter Details Date Type Department Care Team (Latest Contact Info) Description 11/19/2021 [facility] Admitting [address] [place] [id number] Paul Veras MD [address] [place] [address] Hip pain (Primary Dx) Social History Tobacco Use Types Packs/Day Years [...] have Coronavirus / COVID-19? No / Unsure 11/22/2021 1:15 PM RESIN FILTERER documented as of this encounter Plan of Treatment Not on file documented as of this encounter Results * XR HIP MIN 5 VIEW W/PELVIS - VIDAL (11/22/2021 2:12 PM RESIN FILTERER) Anatomical Region Laterality Modality LOWER EXTREMITY, hip, Pelvis Bilateral Dig ital Radiography 11/23/2021 9:33 AM RESIN FILTERER Impressions 11/23/2021 9:35 AM RESIN FILTERER IMPRESSION: No acute osseous abnormality with chronic findings as above. Narrative 11/23/2021 9:35 AM RESIN FILTERER EXAM DESCRIPTION: XR HIP MIN 5 VIEW W/PELVIS - VIDAL REASON FOR STUDY: Pain in unspecified hip of unspecified duration. No provided history of trauma or inciting event. No provided past medical or surgical history. TECHNIQUE: Frog-leg and AP views of the bilateral hips with AP pelvis. COMPARISON: Bilateral femur radiographs performed the same time as this study. FINDINGS: RIGHT HIP: No acute fracture. No subluxation. No suspicious osseous lesions. Degenerative osteoarthropathy about the right hip. LEFT HIP: No acute fracture. No subluxation. No suspicious osseous lesions. 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 PELVIS: No acute fracture. Spondylosis and degenerative disc disease about the visualized lower lumbar spine. SOFT TISSUES: No acute abnormality. Scattered pelvic phleboliths. Calcific atherosclerosis. Surgical clips projecting over the left groin. Additional clips projecting over the right hemipelvis. Heterotopic calcification projecting between the superolateral margin of the left acetabulum and left greater trochanter. OTHER: No other significant finding. THIS IS AN ELECTRONICALLY VERIFIED FINAL REPORT 11/23/2021 9:33 AM - Electronically signed by Stuart Hebert M.D. THOMAS: THOMAS Report ID: [id number] Reading Location: [id number] Procedure Note Stuart Hbeert MD - 11/23/2021 EXAM DESCRIPTION: XR HIP MIN 5 VIEW W/PELVIS - VIDAL REASON FOR STUDY: Pain in unspecified hip of unspecified duration. No provided history of trauma or inciting event. No provided past medical or surgical history. TECHNIQUE: Frog-leg and AP views of the bilateral hips with AP pelvis. COMPARISON: Bilateral femur radiographs performed the same time as this study. FINDINGS: RIGHT HIP: No acute fracture. No subluxation. No suspicious osseous lesions. Degenerative osteoarthropathy about the right hip. LEFT HIP: No acute fracture. No subluxation. No suspicious osseous lesions. 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 PELVIS: No acute fracture. Spondylosis and degenerative disc disease about the visualized lower lumbar spine. SOFT TISSUES: No acute abnormality. Scattered pelvic phleboliths. Calcific atherosclerosis. Surgical clips projecting over the left groin. Additional clips projecting over the right hemipelvis. Heterotopic calcification projecting between the superolateral margin of the left acetabulum and left greater trochanter. OTHER: No other significant finding. THIS IS AN ELECTRONICALLY VERIFIED FINAL REPORT 11/23/2021 9:33 AM - Electronically signed by Stuart Hebert M.D. THOMAS: THOMAS Report ID: [id number] Reading Location: [id number] IMPRESSION: No acute osseous abnormality with chronic findings as above. us Paul Veras MD IMG DIAGNOSTIC ORDERABLES Final Result * XR SACROILIAC JOINTS, COMPLETE (11/22/2021 2:12 PM RESIN FILTERER) Anatomical Region Laterality Modality Spine, Sacroiliac joint N/A Digital Radiography 11/23/2021 9:34 AM RESIN FILTERER Impressions 11/23/2021 9:37 AM RESIN FILTERER IMPRESSION: No acute osseous abnormality with chronic findings as above. Narrative 11/23/2021 9:37 AM RESIN FILTERER EXAM DESCRIPTION: XR SACROILIAC JOINTS, COMPLETE REASON FOR STUDY: Pain in unspecified hip of unspecified duration. No provided history of trauma or inciting event. No provided past medical or surgical history. TECHNIQUE: AP and oblique views of the sacroiliac joints. COMPARISON: Relevant portions of pelvis with bilateral hips radiograph performed the same time as this study. FINDINGS: BONES/JOINTS: No acute fracture. No subluxation. No suspicious osseous lesions. Partial incidental visualization of left total hip arthroplasty. Degenerative osteoarthropathy of the right hip. Spondylosis and degenerative disc disease about the visualized lumbar spine. Clips project over the right hemipelvis. Arterial vascular calcifications. Scattered pelvic phleboliths. SOFT TISSUES: As above. No acute abnormality. OTHER: No other significant finding. THIS IS AN ELECTRONICALLY VERIFIED FINAL REPORT 11/23/2021 9:34 AM - Electronically signed by Stuart Hebert M.D. THOMAS: THOMAS Report ID: [id number] Reading Location: [id number] Procedure Note Stuart Hebert MD - 11/23/2021 EXAM DESCRIPTION: XR SACROILIAC JOINTS, COMPLETE REASON FOR STUDY: Pain in unspecified hip of unspecified duration. No provided history of trauma or inciting event. No provided past medical or surgical history. TECHNIQUE: AP and oblique views of the sacroiliac joints. COMPARISON: Relevant portions of pelvis with bilateral hips radiograph performed the same time as this study. FINDINGS: BONES/JOINTS: No acute fracture. No subluxation. No suspicious osseous lesions. Partial incidental visualization of left total hip arthroplasty. Degenerative osteoarthropathy of the right hip. Spondylosis and degenerative disc disease about the visualized lumbar spine. Clips project over the right hemipelvis. Arterial vascular calcifications. Scattered pelvic phleboliths. SOFT TISSUES: As above. No acute abnormality. OTHER: No other significant finding. THIS IS AN ELECTRONICALLY VERIFIED FINAL REPORT 11/23/2021 9:34 AM - Electronically signed by Stuart Hebert M.D. THOMAS: THOMAS Report ID: [id number] Reading Location: [id number] IMPRESSION: No acute osseous abnormality with chronic findings as above. us Paul Veras MD IMG DIAGNOSTIC ORDERABLES Final Result * XR FEMUR MIN 2V BILATERAL (11/22/2021 2:11 PM RESIN FILTERER) Anatomical Region Laterality Modality LOWER EXTREMITY, Femur Bilateral Digital R adiography 11/23/2021 9:31 AM RESIN FILTERER Impressions 11/23/2021 9:34 AM RESIN FILTERER IMPRESSION: No acute osseous abnormality with chronic findings as above. Narrative 11/23/2021 9:34 AM RESIN FILTERER EXAM DESCRIPTION: XR FEMUR MIN 2V BILATERAL REASON FOR STUDY: Pain in unspecified hip of unspecified duration. No provided history of trauma or inciting event. No provided past medical or surgical history. TECHNIQUE: AP and lateral views acquired of each the left and right femur. COMPARISON: None FINDINGS: LEFT FEMUR: BONES: No acute fracture. No subluxation. No suspicious osseous lesions. 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 Scattered heterotopic calcifications juxtaposed between the superolateral margin of the left acetabulum in the left greater trochanter. SOFT TISSUES: No acute abnormality. Calcific atherosclerosis. Surgical clips projecting over the left groin. Pelvic phleboliths. OTHER: Degenerative osteoarthropathy about the left knee. RIGHT FEMUR: BONES: No acute fracture. No subluxation. No suspicious osseous lesions. Degenerative osteoarthropathy about the right hip. Degenerative osteoarthropathy about the right knee. SOFT TISSUES: No acute abnormality. Calcific atherosclerosis. Clips projecting over the right hemipelvis. Pelvic phleboliths. OTHER: No other significant finding. THIS IS AN ELECTRONICALLY VERIFIED FINAL REPORT 11/23/2021 9:31 AM - Electronically signed by Stuart Hebert M.D. THOMAS: THOMAS Report ID: [id number] Reading Location: [place] [id number] Procedure Note Stuart Hebert MD - 11/23/2021 EXAM DESCRIPTION: XR FEMUR MIN 2V BILATERAL REASON FOR STUDY: Pain in unspecified hip of unspecified duration. No provided history of trauma or inciting event. No provided past medical or surgical history. TECHNIQUE: AP and lateral views acquired of each the left and right femur. COMPARISON: None FINDINGS: LEFT FEMUR: BONES: No acute fracture. No subluxation. No suspicious osseous lesions. 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 Scattered heterotopic calcifications juxtaposed between the superolateral margin of the left acetabulum in the left greater trochanter. SOFT TISSUES: No acute abnormality. Calcific atherosclerosis. Surgical clips projecting over the left groin. Pelvic phleboliths. OTHER: Degenerative osteoarthropathy about the left knee. RIGHT FEMUR: BONES: No acute fracture. No subluxation. No suspicious osseous lesions. Degenerative osteoarthropathy about the right hip. Degenerative osteoarthropathy about the right knee. SOFT TISSUES: No acute abnormality. Calcific atherosclerosis. Clips projecting over the right hemipelvis. Pelvic phleboliths. OTHER: No other significant finding. THIS IS AN ELECTRONICALLY VERIFIED FINAL REPORT 11/23/2021 9:31 AM - Electronically signed by Stuart Hebert M.D. THOMAS: THOMAS Report ID: [id number] Reading Location: [id number] IMPRESSION: No acute osseous abnormality with chronic findings as above. Paul Veras MD IMG DIAGNOSTIC ORDERABLES Final Result documented in this encounter Visit Diagnoses Diagnosis Hip pain- Primary Pain in joint, pelvic region and thigh Hip pain Pain in joint, pelvic region and thigh documented in this encounter Additional Health Concerns Assessment Noted Time PHQ-9 Depression Total Score: 0 02/12/20 21 10:00 AM CDT documented as of this encounter Care Teams Devops Relationship Specialty Start Date End Date Ben Walker MD [address] [place] [address] PCP - General Internal Medicine 07/28/16 Pacheco Gilmore MD [address] [place] [address] Consulting Physician Cardiovascular Disease - Cardiology 11/14/16 04/12/25 [place] [address] [facility] [address] [place] [address] Consulting Physician Pain Medicine-Pain Management 05/22/18 Paul Veras MD [address] [place] [address] Consulting Physician Orthopaedic Surgery 02/23/23 Irvin Flores PAC [address] [place] [address] Physician Proposal Consultant Orthopaedic Surgery 08/18/24 Kev Angeles MD [address] [address] Consulting Physician Colon and Rectal Surgery 09/19/24 Kady Kendrick MD [address] [address] Consulting Physician Cardiology 04/13/25 Arcenio Roberson MD [address] [place] [address] Consulting Physician Wound Care 04/13/25 documented as of this encounter
[2025-08-09 10:21] VITALS: BP 148/59; PULSE 72; RESP 20; TEMP 36.8; O2SAT 98
== END 2025-08-09 11:28 | disposition home or self-care (01) ==
PROVIDERS: Emergency Provider Nurse Practitioner Family; PCP Internal Medicine
DX: J40 Bronchitis, not specified as acute or chronic (principal); I10 Essential (primary) hypertension; Z95.1 Presence of aortocoronary bypass graft
CPT/HCPCS: 71046; 99213; G0463